=== PATIENT | male | born 1940 | race Caucasian/White ===

== ENCOUNTER 2017-12-12 11:54 | Day surgery (SDC) | payer MEDICARE, SELFPAY ==
[~2017-12-12 11:54] MED LIST: ASPI81CH PO; CLON.2 PO; ENOX40I SC; FISH1000 PO; Garlic Oil1000 MG PO; HYDCHL25 PO; MULVITMIND PO; OMEP20ER PO; OXYACE5T PO; SIMV40 PO; VERA240ER PO; ZESTRIL40 MG PO
== END 2017-12-13 00:07 | disposition home or self-care (01) ==
LOC: RAD 11:54
PROC: B54BZZZ Ultrasonography of Right Lower Extremity Veins (ICD-10-PCS; principal; 2017-12-12)
DX: L03.115 Cellulitis of right lower limb (principal)
CPT/HCPCS: 85025; 93971

== ENCOUNTER 2018-04-26 16:38 | Emergency (ER) | payer MEDICARE ==
[~2018-04-26] VITALS: Ht 175.3 cm; Wt 104.3 kg
[2018-04-26] MEDS ORDERED: Kristalose20 GM PO (17:06)
[2018-04-26] MEDS ORDERED: Golytely Solu4000 ML PO (17:06)
== END 2018-04-26 17:10 | disposition home or self-care (01) ==
LOC: ER 16:38
DX: K59.00 Constipation, unspecified (principal); I10 Essential (primary) hypertension; E78.5 Hyperlipidemia, unspecified; K21.9 Gastro-esophageal reflux disease without esophagitis; J44.9 Chronic obstructive pulmonary disease, unspecified; Z87.891 Personal history of nicotine dependence; Z79.899 Other long term (current) drug therapy; Z79.82 Long term (current) use of aspirin
CPT/HCPCS: 99282

== ENCOUNTER → 2019-03-03 | Outpatient (CLI) | payer MEDICARE, OTHER ==
[~2019-03-03] MED LIST changes: +Golytely Solu4000 ML PO; +Kristalose20 GM PO
[2019-03-03 14:59] LABS: BASOPHILS ABSOLUTE AUTO 0.02 K/mm3 (0.00-0.23); BASOPHILS PERCENT AUTO 0 % (0-2); EOSINOPHILS ABSOLUTE AUTO 0.34 K/mm3 (0.00-0.68); EOSINOPHILS PERCENT AUTO 5 % (0-6); Hematocrit 38.9 % (37.0-53.0); Hemoglobin 12.5 g/dL (13.5-17.5); IMMATURE GRAN ABSOLUTE AUTO 0.02 K/mm3 (0.00-0.10); IMMATURE GRAN PERCENT AUTO 0 % (0-1); LYMPHOCYTES ABSOLUTE AUTO 1.01 K/mm3 (0.84-5.20); LYMPHOCYTES PERCENT AUTO 14 % (21-46); MONOCYTES ABSOLUTE AUTO 0.73 K/mm3 (0.16-1.47); MONOCYTES PERCENT AUTO 10 % (4-13); Mean Corpuscular HGB Conc 32.1 g/dL (31.5-36.5); Mean Corpuscular Volume 93 fL (80-100); Mean Platelet Volume 9.1 fL (9.1-12.4); NEUTROPHILS ABSOLUTE AUTO 5.09 K/mm3 (1.96-9.15); NEUTROPHILS PERCENT AUTO 71 % (41-73); Platelet Count 256 K/mm3 (150-400); RDW Coefficient Variation 14.9 % (11.7-14.2); RDW Standard Deviation 50.9 fL (35.1-46.3); Red Blood Cell Count 4.17 M/mm3 (4.30-5.90); White Blood Cell Count 7.21 K/mm3 (4.00-11.30)
[2019-03-03 15:07] LABS: Anion Gap 4 mmol/L (6-16); Blood Urea Nitrogen 19 mg/dL (8-24); Bun/Creatinine Ratio 17.6 (12.0-20.0); CO2, Blood 34 mmol/L (21-32); Calcium, Blood 8.5 mg/dL (8.5-10.1); Chloride, Blood 100 mmol/L (98-108); Creatinine, Blood 1.08 mg/dL (0.60-1.20); Glomerular Filtration Rate >60 (60-); Glucose, Blood 122 mg/dL (70-99); Potassium, Blood 4.1 mmol/L (3.5-5.5); Sodium, Blood 138 mmol/L (136-145)
== END | disposition home or self-care (01) ==
LOC: LAB EV 14:51 → LAB SHORT 14:51
PROVIDERS: Physician Assistant Surgical
DX: M79.89 Other specified soft tissue disorders (principal); R06.02 Shortness of breath; L03.115 Cellulitis of right lower limb
CPT/HCPCS: 80048; 83880; 85025; 87070; 87205

== ENCOUNTER 2019-07-04 07:30 | Day surgery (SDC) | payer MEDICARE, OTHER | END 2019-07-04 22:45 | disposition home or self-care (01) | LOC: WOUND 07:30 | DX: L97.821 Non-pressure chronic ulcer of other part of left lower leg limited to breakdown of skin (principal); L97.811 Non-pressure chronic ulcer of other part of right lower leg limited to breakdown of skin; S91.302D Unspecified open wound, left foot, subsequent encounter; I87.2 Venous insufficiency (chronic) (peripheral); I89.0 Lymphedema, not elsewhere classified; I10 Essential (primary) hypertension; J44.9 Chronic obstructive pulmonary disease, unspecified; E78.5 Hyperlipidemia, unspecified; I25.2 Old myocardial infarction | CPT/HCPCS: G0463 ==

== ENCOUNTER 2019-07-11 00:29 | Day surgery (SDC) | payer MEDICARE, OTHER | END 2019-07-11 22:43 | disposition home or self-care (01) | LOC: WOUND 00:29 | DX: L97.821 Non-pressure chronic ulcer of other part of left lower leg limited to breakdown of skin (principal); L97.811 Non-pressure chronic ulcer of other part of right lower leg limited to breakdown of skin; S91.302D Unspecified open wound, left foot, subsequent encounter; I89.0 Lymphedema, not elsewhere classified; I10 Essential (primary) hypertension; E78.5 Hyperlipidemia, unspecified; J44.9 Chronic obstructive pulmonary disease, unspecified; M19.90 Unspecified osteoarthritis, unspecified site | CPT/HCPCS: 87070; 87075; 87205; G0463 ==

== ENCOUNTER 2019-07-18 00:33 | Day surgery (SDC) | payer MEDICARE, OTHER | END 2019-07-18 22:41 | disposition home or self-care (01) | LOC: WOUND 00:33 | DX: L97.811 Non-pressure chronic ulcer of other part of right lower leg limited to breakdown of skin (principal); L97.821 Non-pressure chronic ulcer of other part of left lower leg limited to breakdown of skin; S91.302D Unspecified open wound, left foot, subsequent encounter; I89.0 Lymphedema, not elsewhere classified; I10 Essential (primary) hypertension; I73.9 Peripheral vascular disease, unspecified | CPT/HCPCS: G0463 ==

== ENCOUNTER 2019-08-02 15:13 | Day surgery (SDC) | payer MEDICARE, OTHER | END 2019-08-02 22:35 | disposition home or self-care (01) | LOC: WOUND 15:13 | DX: L89.892 Pressure ulcer of other site, stage 2 (principal); L97.811 Non-pressure chronic ulcer of other part of right lower leg limited to breakdown of skin; L97.529 Non-pressure chronic ulcer of other part of left foot with unspecified severity; L97.519 Non-pressure chronic ulcer of other part of right foot with unspecified severity; S91.302D Unspecified open wound, left foot, subsequent encounter; I73.9 Peripheral vascular disease, unspecified; I89.0 Lymphedema, not elsewhere classified; I10 Essential (primary) hypertension | CPT/HCPCS: 87070; 87077; 87147; 87186; 87205 ==

== ENCOUNTER 2019-08-09 00:44 | Day surgery (SDC) | payer MEDICARE, OTHER | END 2019-08-09 22:41 | disposition home or self-care (01) | LOC: WOUND 00:44 | DX: L97.811 Non-pressure chronic ulcer of other part of right lower leg limited to breakdown of skin (principal); L89.892 Pressure ulcer of other site, stage 2; S91.302A Unspecified open wound, left foot, initial encounter; I89.0 Lymphedema, not elsewhere classified; I10 Essential (primary) hypertension ==

== ENCOUNTER 2019-08-16 00:23 | Day surgery (SDC) | payer MEDICARE, OTHER | END 2019-08-16 22:45 | disposition home or self-care (01) | LOC: WOUND 00:23 | DX: L97.811 Non-pressure chronic ulcer of other part of right lower leg limited to breakdown of skin (principal); L89.892 Pressure ulcer of other site, stage 2; S91.302D Unspecified open wound, left foot, subsequent encounter; I10 Essential (primary) hypertension; I89.0 Lymphedema, not elsewhere classified ==

== ENCOUNTER 2019-08-23 00:30 | Day surgery (SDC) | payer MEDICARE, OTHER | END 2019-08-23 22:48 | disposition home or self-care (01) | LOC: WOUND 00:30 | DX: L97.811 Non-pressure chronic ulcer of other part of right lower leg limited to breakdown of skin (principal); L97.529 Non-pressure chronic ulcer of other part of left foot with unspecified severity; L89.892 Pressure ulcer of other site, stage 2; S91.302D Unspecified open wound, left foot, subsequent encounter; I89.0 Lymphedema, not elsewhere classified ==

== ENCOUNTER 2019-08-30 00:25 | Day surgery (SDC) | payer MEDICARE, OTHER | END 2019-08-30 22:35 | disposition home or self-care (01) | LOC: WOUND 00:25 | DX: L97.811 Non-pressure chronic ulcer of other part of right lower leg limited to breakdown of skin (principal); L89.892 Pressure ulcer of other site, stage 2; S91.302D Unspecified open wound, left foot, subsequent encounter; I10 Essential (primary) hypertension; J44.9 Chronic obstructive pulmonary disease, unspecified; I89.0 Lymphedema, not elsewhere classified ==

== ENCOUNTER 2019-09-06 14:46 | Day surgery (SDC) | payer MEDICARE, OTHER | END 2019-09-06 22:38 | disposition home or self-care (01) | LOC: WOUND 14:46 | DX: L89.892 Pressure ulcer of other site, stage 2 (principal); L97.811 Non-pressure chronic ulcer of other part of right lower leg limited to breakdown of skin; S91.302D Unspecified open wound, left foot, subsequent encounter; I89.0 Lymphedema, not elsewhere classified; I10 Essential (primary) hypertension ==

== ENCOUNTER 2019-09-13 00:22 | Day surgery (SDC) | payer MEDICARE, OTHER | END 2019-09-13 22:40 | disposition home or self-care (01) | LOC: WOUND 00:22 | DX: S91.302D Unspecified open wound, left foot, subsequent encounter (principal); I89.0 Lymphedema, not elsewhere classified; I10 Essential (primary) hypertension | CPT/HCPCS: G0463 ==

== ENCOUNTER 2019-11-14 17:23 | Emergency (ER) | payer MEDICARE, OTHER ==
[~2019-11-14] VITALS: Ht 175.3 cm; Wt 117.9 kg
[~2019-11-14 17:23] MED LIST changes: -ASPI81CH PO; +Aspir 8181 MG PO; -Garlic Oil1000 MG PO; +Garlic1 EAC1 PO; +LISI20 PO; -MULVITMIND PO; -SIMV40 PO; +Simvastatin40 MG PO; +THERA1 EACH PO; -ZESTRIL40 MG PO
[2019-11-14 18:56] LABS: BASOPHILS ABSOLUTE AUTO 0.01 K/mm3 (0.00-0.23); BASOPHILS PERCENT AUTO 0 % (0-2); EOSINOPHILS ABSOLUTE AUTO 0.12 K/mm3 (0.00-0.68); EOSINOPHILS PERCENT AUTO 1 % (0-6); Hematocrit 36.6 % (37.0-53.0); Hemoglobin 11.8 g/dL (13.5-17.5); IMMATURE GRAN ABSOLUTE AUTO 0.04 K/mm3 (0.00-0.10); IMMATURE GRAN PERCENT AUTO 0 % (0-1); LYMPHOCYTES ABSOLUTE AUTO 1.08 K/mm3 (0.84-5.20); LYMPHOCYTES PERCENT AUTO 10 % (21-46); MONOCYTES ABSOLUTE AUTO 1.03 K/mm3 (0.16-1.47); MONOCYTES PERCENT AUTO 10 % (4-13); Mean Corpuscular HGB 29.4 pg (26.0-34.0); Mean Corpuscular HGB Conc 32.2 g/dL (31.5-36.5); Mean Corpuscular Volume 91 fL (80-100); Mean Platelet Volume 9.6 fL (9.1-12.4); NEUTROPHILS PERCENT AUTO 79 % (41-73); Platelet Count 234 K/mm3 (150-400); RDW Coefficient Variation 14.9 % (11.7-14.2); RDW Standard Deviation 50.6 fL (35.1-46.3); Red Blood Cell Count 4.02 M/mm3 (4.30-5.90); White Blood Cell Count 10.68 K/mm3 (4.00-11.30)
[2019-11-14 19:14] LABS: Alanine Aminotransfer (ALT/SGP 31 U/L (12-78); Albumin/Globulin Ratio 0.6 (0.8-1.8); Alk Phos 95 U/L (50-136); Anion Gap 5 mmol/L (6-16); Aspartate Aminotrans (AST/SGOT 43 U/L (12-37); Bilirubin, Total 0.6 mg/dL (0.1-1.0); Blood Urea Nitrogen 14 mg/dL (8-24); Bun/Creatinine Ratio 17.2 (12.0-20.0); CO2, Blood 28 mmol/L (21-32); Calcium, Blood 8.4 mg/dL (8.5-10.1); Chloride, Blood 99 mmol/L (98-108); Creatinine, Blood 0.82 mg/dL (0.60-1.20); Globulin, Blood 5.2 g/dL (2.2-4.0); Glomerular Filtration Rate >60 (60-); Glucose, Blood 136 mg/dL (70-99); Sodium, Blood 132 mmol/L (136-145); Total Protein, Blood 8.2 g/dL (6.4-8.2)
[2019-11-14 20:39] LABS: Source, Urine Clean Catch
[2019-11-14 20:42] LABS: Bilirubin, Urine Neg (Neg); Blood, Urine Neg (Neg); Glucose Qualitative, Urine Neg (Neg); Ketones, Urine 2+ (Neg); Leukocyte Esterase, Urine Neg (Neg); Nitrite, Urine Neg (Neg); Protein, Urine Neg (Neg); Specific Gravity, Urine 1.005 (1.003-1.022); Urobilinogen, Urine NORM (Normal)
[2019-11-14 20:49] LABS: Appearance, Urine Clear (Clear); Color, Urine Yellow (P-Yellow)
[2019-11-14] MEDS ORDERED: Alprazolam1 MG PO (22:47)
[2019-11-14] MEDS ORDERED: FUROSEMIDE40 MG PO (22:48)
[2019-11-14] MEDS ORDERED: K-Dur10 MEQ PO (22:48)
[2019-11-15] MEDS ORDERED: AZIT250 PO (00:02)
== END 2019-11-15 01:07 | disposition home or self-care (01) ==
LOC: ER 17:23
PROVIDERS: Physician Assistant
DX: I89.0 Lymphedema, not elsewhere classified (principal); R53.1 Weakness; I10 Essential (primary) hypertension; E78.5 Hyperlipidemia, unspecified; K21.9 Gastro-esophageal reflux disease without esophagitis; J44.9 Chronic obstructive pulmonary disease, unspecified; F17.200 Nicotine dependence, unspecified, uncomplicated; Z79.899 Other long term (current) drug therapy; Z79.82 Long term (current) use of aspirin
CPT/HCPCS: 36415; 71045; 80053; 81003; 83880; 84484; 85025; 93971; 99284-25

== ENCOUNTER 2019-11-17 14:43 | Observation (INO) | payer MEDICARE, OTHER ==
[~2019-11-17] VITALS: Ht 177.8 cm; Wt 116.0 kg
[~2019-11-17 14:43] MED LIST changes: +AZIT250 PO; +Alprazolam1 MG PO; +FUROSEMIDE40 MG PO; +K-Dur10 MEQ PO
[2019-11-17 17:45] LABS: BASOPHILS ABSOLUTE AUTO 0.03 K/mm3 (0.00-0.23); BASOPHILS PERCENT AUTO 0 % (0-2); EOSINOPHILS ABSOLUTE AUTO 0.25 K/mm3 (0.00-0.68); EOSINOPHILS PERCENT AUTO 3 % (0-6); Hematocrit 42.3 % (37.0-53.0); Hemoglobin 13.2 g/dL (13.5-17.5); IMMATURE GRAN ABSOLUTE AUTO 0.05 K/mm3 (0.00-0.10); IMMATURE GRAN PERCENT AUTO 1 % (0-1); LYMPHOCYTES PERCENT AUTO 10 % (21-46); MONOCYTES PERCENT AUTO 10 % (4-13); Mean Corpuscular HGB 28.5 pg (26.0-34.0); Mean Corpuscular HGB Conc 31.2 g/dL (31.5-36.5); Mean Corpuscular Volume 91 fL (80-100); NEUTROPHILS ABSOLUTE AUTO 6.54 K/mm3 (1.96-9.15); NEUTROPHILS PERCENT AUTO 75 % (41-73); Platelet Count 347 K/mm3 (150-400); RDW Coefficient Variation 15.1 % (11.7-14.2); RDW Standard Deviation 50.4 fL (35.1-46.3); Red Blood Cell Count 4.63 M/mm3 (4.30-5.90); White Blood Cell Count 8.67 K/mm3 (4.00-11.30)
[2019-11-17 18:14] LABS: Troponin I <0.015 ng/mL (0.000-0.040)
[2019-11-17 18:17] LABS: Alanine Aminotransfer (ALT/SGP 31 U/L (12-78); Albumin/Globulin Ratio 0.5 (0.8-1.8); Alk Phos 95 U/L (50-136); Anion Gap 7 mmol/L (6-16); Aspartate Aminotrans (AST/SGOT 41 U/L (12-37); Bilirubin, Total 0.5 mg/dL (0.1-1.0); Blood Urea Nitrogen 16 mg/dL (8-24); CO2, Blood 27 mmol/L (21-32); Calcium, Blood 8.9 mg/dL (8.5-10.1); Chloride, Blood 101 mmol/L (98-108); Creatinine, Blood 0.84 mg/dL (0.60-1.20); Globulin, Blood 5.7 g/dL (2.2-4.0); Glomerular Filtration Rate >60 (60-); Glucose, Blood 96 mg/dL (70-99); Potassium, Blood 4.3 mmol/L (3.5-5.5); Sodium, Blood 135 mmol/L (136-145); Total Protein, Blood 8.7 g/dL (6.4-8.2)
[2019-11-17 19:17] LABS: Source, Urine Voided
[2019-11-17 19:22] LABS: Bilirubin, Urine Neg (Neg); Blood, Urine Neg (Neg); Glucose Qualitative, Urine Neg (Neg); Ketones, Urine Neg (Neg); Leukocyte Esterase, Urine 2+ (Neg); Nitrite, Urine Neg (Neg); Protein, Urine 1+ (Neg); Urobilinogen, Urine 2+ (Normal)
[2019-11-17 19:27] LABS: Appearance, Urine Clear (Clear); Color, Urine Yellow (P-Yellow)
[2019-11-17 19:28] LABS: Bacteria Few /hpf; Red Blood Cells, Urine 0-2 /hpf (0-2); Squamous Epithelial Cells Rare /hpf (Few)
[2019-11-17] MEDS ORDERED: AMIT25 PO (20:25)
--- NOTE | 2019-11-17 22:52 | NUR ---
79 YR OLD MALE ADMITTED TO FLOOR FROM THE ED WITH DX IMPAIRED MOBILITY AND ADL'S. ALERT AND ORIENTED. VOICED INABILITY TO EVEN USE BEDSIDE COMMODE AT HOME DUE TO DECONDITIONING OF LOWER EXTREMITIES. VOICED HE "BROKE" RLE AND IS "UNABLE TO STRAIGHTEN IT OUT". ALSO NOTED DECUBITUS OF RIGHT GLUTEAL, WITH HARDNESS AND DISCOLORATION OF LEFT GLUTEAL. LLE IS SWOLLEN AND RED. NOTE SOME CONGESTION - HOB ELEVATED TO 45 DEGREES. ASSISTED WITH BEDPAN - MED SIZED BM. CALL LIGHT IN REACH.
--- NOTE | 2019-11-17 23:51 | NUR ---
BEAVER TRAPPER AGRICULTURAL ECONOMIST NOTIFIED OF PT WOUNDS OF GLUTES AND LLE.
--- NOTE | 2019-11-18 01:56 | NUR ---
PT HAS BEEN RESTING WITHOUT NOTED ACUTE DISTRESS, BREATHING BETTER SINCE RESP TREATMENT PER RT EARLIER. HOB ELEVATED. CALL LIGHT IN REACH.
--- NOTE | 2019-11-18 17:22 | NUR ---
SHIFT SUMMARY PT AXO, PLEASANT AND COOPERATIVE WITH CARE. PT UP TO CHAIR WITH PHYSICAL THERAPY, SEE NOTE. PATIENT ALSO WORKED WITH OCCUPATIONAL THERAPY, SEE NOTE. VSS. PT DENIES PAIN, SOB AND NV. NURSE AND SCABBLER GOT PT UP TO SHOWER CHAIR VIA JOEY LIFT AND INTO SHOWER. SACRAL WOUNDS DRESSED WITH MEPILEX. PT UP IN RECLINER AT THIS TIME. CALL LIGHT WITHIN REACH. VOIDS IN URINAL WITH ASSISTANCE.
--- NOTE | 2019-11-19 07:16 | NUR ---
SHIFT SUMMARY PT LS CLEAR AND DIMINISHED, BT + X4. PT C/O PAIN IN HIS LE'S AND HE RECEIVED TYLENOL FOR PAIN WHICH WAS EFFECTIVE. NO OTHER COMPLAINTS T/O THE NIGHT. APPEARED TO BE SLEEPING AFTER APPROX 0500. HE WATCHED TV WHENEVER HE WASN'T ABLE TO SLEEP. HE APPEARS TO BE SLEEPING THIS MORNING.
--- NOTE | 2019-11-19 13:07 | NUR ---
D/C PLANNING: CONFIRMED BED AVAILABLE WITH [facility]. PT TO D/C TO [facility] TODAY. ORDERS FAXED TO [facility] AND [facility]. TRANSPORTATION ARRANGED WITH [facility] [employer] WHEELCHA[facility] FOR 1500. NOTIFIED PT'S EX- VANESSA PER PT REQUEST.
--- NOTE | 2019-11-19 15:20 | NUR ---
PT TRANSFERED VIA WHEELCHAIR WITH [facility] TO [facility]. PT AOX3 AND COOPERATIVE OF CARE. PT HAD PACKET SENT WITH HIM. PT WAS LOADED IN WHEELCHAIR WITH THE SIT TO STAND. BELONGINGS SENT WITH PT AND REPORT CALLED PRIOR TO DISCHARE TO [facility]. DENIED ANY PAIN TODAY.LLE CELLULITIS NO CHANGES AND MEPAPLEX TO R GLUTEAL IN PLACE. PT DID NOT WANT TO GET DRESSED AND REQUESTED TO GO IN HOSPITAL GOWN.
== END 2019-11-19 15:08 ==
LOC: ER 14:43 → MEDS 14:44
PROVIDERS: Emergency Medicine; ADMIT Hospitalist
DX: Z74.09 Other reduced mobility (principal); J44.9 Chronic obstructive pulmonary disease, unspecified; I10 Essential (primary) hypertension; E78.5 Hyperlipidemia, unspecified; D64.9 Anemia, unspecified; E87.1 Hypo-osmolality and hyponatremia; I73.9 Peripheral vascular disease, unspecified; F17.210 Nicotine dependence, cigarettes, uncomplicated; J98.11 Atelectasis; E66.9 Obesity, unspecified; M19.90 Unspecified osteoarthritis, unspecified site; Z79.82 Long term (current) use of aspirin; Z79.899 Other long term (current) drug therapy; Z68.43 Body mass index [BMI] 50.0-59.9, adult
CPT/HCPCS: 36415; 71045; 80053; 81001; 83880; 84443; 84484; 85025; 93005; 93010; 96372; 97110; 97163; 97167; 97530; 97535; 99285-25; A9270; G0378; J1650

== ENCOUNTER 2020-02-29 11:27 | Inpatient (IN) | payer MEDICARE, OTHER ==
[~2020-02-29] VITALS: Ht 180.3 cm; Wt 135.2 kg
[~2020-02-29 11:27] MED LIST changes: -ACET325 PO; -AMIT10 PO; -Aspir 8181 MG PO; -BENEFIBER236 GM PO; -BISA10S PR; -CYCL10 PO; -FUROSEMIDE40 MG PO; -Hair, Skin & N1 EACH PO; -K-Dur10 MEQ PO; -LISI20 PO; -MILK OF MA400 MG/5 M PO; -ONDA4 PO; -Simvastatin40 MG PO; -Verapamil ER200 MG PO
[2020-02-29 12:18] LABS: BASOPHILS ABSOLUTE AUTO 0.06 K/mm3 (0.00-0.23); BASOPHILS PERCENT AUTO 0 % (0-2); EOSINOPHILS ABSOLUTE AUTO 0.01 K/mm3 (0.00-0.68); EOSINOPHILS PERCENT AUTO 0 % (0-6); Hematocrit 41.9 % (37.0-53.0); Hemoglobin 13.1 g/dL (13.5-17.5); IMMATURE GRAN ABSOLUTE AUTO 0.11 K/mm3 (0.00-0.10); IMMATURE GRAN PERCENT AUTO 1 % (0-1); LYMPHOCYTES ABSOLUTE AUTO 0.47 K/mm3 (0.84-5.20); LYMPHOCYTES PERCENT AUTO 2 % (21-46); MONOCYTES ABSOLUTE AUTO 1.92 K/mm3 (0.16-1.47); MONOCYTES PERCENT AUTO 9 % (4-13); Mean Corpuscular HGB 29.5 pg (26.0-34.0); Mean Corpuscular HGB Conc 31.3 g/dL (31.5-36.5); Mean Corpuscular Volume 94 fL (80-100); Mean Platelet Volume 8.8 fL (9.1-12.4); NEUTROPHILS ABSOLUTE AUTO 19.94 K/mm3 (1.96-9.15); NEUTROPHILS PERCENT AUTO 89 % (41-73); Platelet Count 425 K/mm3 (150-400); RDW Coefficient Variation 15.5 % (11.7-14.2); Red Blood Cell Count 4.44 M/mm3 (4.30-5.90); White Blood Cell Count 22.51 K/mm3 (4.00-11.30)
[2020-02-29 12:43] LABS: Alanine Aminotransfer (ALT/SGP 29 U/L (12-78); Albumin, Blood 4.2 g/dL (3.4-5.0); Albumin/Globulin Ratio 0.7 (0.8-1.8); Alk Phos 100 U/L (50-136); Anion Gap 13 mmol/L (6-16); Aspartate Aminotrans (AST/SGOT 23 U/L (12-37); Bilirubin, Total 0.7 mg/dL (0.1-1.0); Blood Urea Nitrogen 68 mg/dL (8-24); Bun/Creatinine Ratio 21.5 (12.0-20.0); CO2, Blood 24 mmol/L (21-32); Calcium, Blood 9.4 mg/dL (8.5-10.1); Chloride, Blood 93 mmol/L (98-108); Creatinine, Blood 3.17 mg/dL (0.60-1.20); Globulin, Blood 5.9 g/dL (2.2-4.0); Glomerular Filtration Rate 20 (60-); Glucose, Blood 190 mg/dL (70-99); Potassium, Blood 5.5 mmol/L (3.5-5.5); Sodium, Blood 130 mmol/L (136-145); Total Protein, Blood 10.1 g/dL (6.4-8.2); Troponin I <0.015 ng/mL (0.000-0.040)
[2020-02-29] MEDS ORDERED: Verapamil ER200 MG PO (14:55)
[2020-02-29] MEDS ORDERED: LISI20 PO (14:56)
[2020-02-29] MEDS ORDERED: Simvastatin40 MG PO (14:56)
[2020-02-29] MEDS ORDERED: FUROSEMIDE40 MG PO (14:57)
[2020-02-29] MEDS ORDERED: Hair, Skin & N1 EACH PO (14:57)
[2020-02-29] MEDS ORDERED: Aspir 8181 MG PO (14:57)
[2020-02-29] MEDS ORDERED: K-Dur10 MEQ PO (14:58)
[2020-02-29] MEDS ORDERED: AMIT10 PO (14:59)
[2020-02-29] MEDS ORDERED: CYCL10 PO (14:59)
[2020-02-29] MEDS ORDERED: ACET325 PO ×2 (15:00→15:01)
[2020-02-29] MEDS ORDERED: BISA10S PR (15:01)
[2020-02-29] MEDS ORDERED: MILK OF MA400 MG/5 M PO (15:02)
[2020-02-29] MEDS ORDERED: BENEFIBER236 GM PO (15:03)
[2020-02-29 15:17] LABS: PCO2 Arterial 45 mmHg (35-45); PO2 Arterial 67 mmHg (80-100)
[2020-02-29 15:52] LABS: Adenovirus F 40/41 Not Detected (NOT DETECT); Astrovirus Not Detected (NOT DETECT); Campylobacter Sp Not Detected (NOT DETECT); Cryptosporidium Not Detected (NOT DETECT); Cyclospora Cayetanensis Not Detected (NOT DETECT); E. Coli O157 Not Detected (NOT DETECT); Entamoeba Histolytica Not Detected (NOT DETECT); Enteroaggregative E. coli-EAEC Not Detected (NOT DETECT); Enteropathogenic E. coli-EPEC Not Detected (NOT DETECT); Enterotoxigenic E. coli-ETEC Not Detected (NOT DETECT); Giardia Lamblia Not Detected (NOT DETECT); Norovirus GI/GII Not Detected (NOT DETECT); Plesiomonas Shigelloides Not Detected (NOT DETECT); Rotavirus A Not Detected (NOT DETECT); Salmonella Sp Not Detected (NOT DETECT); Sapovirus Not Detected (NOT DETECT); Shiga Toxin-prod E. coli-STEC Not Detected (NOT DETECT); Shigella/Enteroin E. coli-EIEC Not Detected (NOT DETECT); Vibrio Cholerae Not Detected (NOT DETECT); Vibrio Sp Not Detected (NOT DETECT); Yersinia Enterocolitica Not Detected (NOT DETECT)
--- NOTE | 2020-02-29 18:37 | NUR ---
Patient arrive via gurney from ER at 1617. He was alert and able to communicate his needs. He had attends in place and was soiuled with light hi liquids stool. I placed him on 3L O2 via NC and increased to 5L and sats mid 90%'s. We placed rectal tube and continued to have watery hi stool out rectal tube. NG placed in left nares and got dark brown output, he coughed andf spayed on ppatient and staff and cleaned him up, less than 50ml/out. Dr bermeo in room and had RT give breathing treatment and wheezy, doing better after treatment. PICC line place for MAPs <65. Bolus LR and systolic came up to 94 but MAP <65. Started low dose Levophed at 5 mcg/min. Patient resting quietly. Called son and gave update ( Osbaldo Johnson)
--- NOTE | 2020-02-29 19:00 | NUR ---
ASSUMED CARE NOTE: ASSUMED CARE OF PT AT 1900, RECEVIED REPORT FROM RACHEL SALAZAR. PT IS ALERT AND ORIENTEDX3. PT IS ON 4L OF O2 VIA NC, WITH SPO2 ABOVE 90%, PT PRODUCING WHITE/CLEAR SPUTUM. PT IS WHEEZY IN THE UPPER LOBES BILATERALLY. PT IS IN NSR WITH HR IN THE 90'S. BP STABLE, LEVOPHED RUNNING @ 5MCG/MIN. PT DENIES PAIN, HOWEVER, HE STATES HE IS NAUSEATED, PT ALSO STATES THAT HE HAS ABDOMINAL TENDERNESS IN ALL QUADRANTS. OG TUBE IN PLACE CONNECTED TO LOW INTERMIT SUCTION. RECTAL TUBE TO GRAVITY DRAINING BROWN, YELLOW LIQUID STOOL. BED AT LOWEST LEVEL, WILL CONTINUE TO MONITOR PT T/O SHIFT.
--- NOTE | 2020-02-29 20:45 | NUR ---
CALLED [facility], TO OBTAIN MEDICATION LIST AND MEDICAL HISTORY. LEFT NAME AND NUMBER WITH PRIMARY NURSE. WILL WAIT ON RESPONSE TO COMPLETE MED REC.
--- NOTE | 2020-02-29 22:02 | NUR ---
UPDATE: DANI WHITMORE AT BEDSIDE, FOR PT TO SELF USE. CONDOM CATH IN PLACE, TO OBTAIN URINE SAMPLE AND PREVENT FURTHER SKIN BREAKDOWN. SPOKE TO YOEL SALAZAR, AT [facility], AWAITING FAX.
[2020-03-01] MEDS ORDERED: ONDA4 PO (02:33)
[2020-03-01 03:20] LABS: Source, Urine Catheter
[2020-03-01 03:23] LABS: Bilirubin, Urine Neg (Neg); Blood, Urine 2+ (Neg); Glucose Qualitative, Urine Neg (Neg); Ketones, Urine Neg (Neg); Leukocyte Esterase, Urine 1+ (Neg); Nitrite, Urine Neg (Neg); Protein, Urine 2+ (Neg); Urobilinogen, Urine NORM (Normal)
[2020-03-01 03:28] LABS: Appearance, Urine Hazy (Clear); Color, Urine Yellow (P-Yellow)
[2020-03-01 03:29] LABS: Amorphous Heavy (0-Heavy); Bacteria Few /hpf; Red Blood Cells, Urine Rare /hpf (0-2); Squamous Epithelial Cells Rare /hpf (Few); White Blood Cells, Urine 0-2 /hpf (0-5)
[2020-03-01 04:00] LABS: Hematocrit 32.2 % (37.0-53.0); Mean Corpuscular HGB 29.4 pg (26.0-34.0); Mean Corpuscular HGB Conc 31.1 g/dL (31.5-36.5); Mean Corpuscular Volume 95 fL (80-100); Mean Platelet Volume 8.7 fL (9.1-12.4); Platelet Count 318 K/mm3 (150-400); RDW Coefficient Variation 15.6 % (11.7-14.2); RDW Standard Deviation 54.3 fL (35.1-46.3); White Blood Cell Count 15.05 K/mm3 (4.00-11.30)
--- NOTE | 2020-03-01 04:14 | NUR ---
UPDATE: BLADDER SCAN PERFORMED, RESULT 572ML. CALLED , ORDERS GIVEN TO PLACE ELIZONDO CATH. PT TOLERATED PRODECURE WILL. ELIZONDO DRAINING HEYDI COLORED URINE. PT BLOOD PRESSURE CONTINUES TO DECREASE, LEVOPHED UP TO 14MCG/MIN. PT IS STILL ALERT AND ORIENTED. PT DENIES FEELING WEAK/DIZZY. WILL CONTINUE TO MONITOR PT.
[2020-03-01 04:17] LABS: BAND PERCENT MAN 22 % (0-8); BASOPHILS PERCENT MAN 0 % (0-2); EOSINOPHILS PERCENT MAN 0 % (0-6); LYMPHOCYTES PERCENT MAN 6 % (21-46); MONOCYTES ABSOLUTE MAN 1.95 K/mm3 (0.16-1.47); MONOCYTES PERCENT MAN 13 % (4-13); NEUTROPHILS ABSOLUTE MAN 12.19 K/mm3 (1.96-9.15); SEG NEUTROPHILS PERCENT MAN 59 % (41-73); TOTAL CELLS COUNTED 100
[2020-03-01 04:22] LABS: Albumin, Blood 2.7 g/dL (3.4-5.0); Albumin/Globulin Ratio 0.6 (0.8-1.8); Bilirubin, Total 0.4 mg/dL (0.1-1.0); Bun/Creatinine Ratio 23.2 (12.0-20.0); Calcium, Blood 7.6 mg/dL (8.5-10.1); Creatinine, Blood 3.19 mg/dL (0.60-1.20); Globulin, Blood 4.3 g/dL (2.2-4.0); Potassium, Blood 4.6 mmol/L (3.5-5.5)
--- NOTE | 2020-03-01 06:15 | NUR ---
SHIFT SUMMARY: SEE PREVIOUS NOTES. LEVOPHED HAS BEEN INCREASED DUE TO LOW MAP. LEVOPHED IS NOW RUNNING @ 12MCG/MIN. PT DENIES FEELING LIGHTHEADED, DIZZY, OR NAUSEATED. PT HAS BEEN IN SINUS TACH WITH HR BETWEEN 90-105. PT'S IS NOW ON 2L OF O2 VIA NC, WITH SPO2 ABOVE 90% PT DENIES BEING SOB. ELIZONDO WAS PLACED THIS SHIFT DUE TO RETENTION. ELIZONDO IS PATENT AND DRAINGING HEYDI COLORED URINE. RECTAL TUBE IS LIQUID AND LIGHT BROWN 500ML OUTPUT. OG TUBE TO LOW INTERMIT SUCTION, LITTLE TO NO OUTPUT. WILL CONTINUE TO MONITOR PT UNTIL REPORT IS GIVEN TO ONCOMING SHIFT
--- NOTE | 2020-03-01 08:00 | NUR ---
PT A&OX3. [place], BUT COMMUNICATING NEEDS WELL. PT BED BOUND WITH CONTRACTURES TO RIGHT UPPER AND LOWER EXTREMITY AT BASELINE. ECG SHOWS SR TO ST 90-100'S. MAP 60-65 WITH LEVOPHED DRIP @ 12 MCG/MIN. LUNGS DIMINISHED IN THE BASES, NUT MAINTAINS SATS>90% ON 2 LITERS NASANL CANULA. NPO. NGT TO RIGHT NARES TO LIS-SMALL AMOUNT OF GREEN LIQUID DRAINAGE. ABDOMEN REMAINS DISTENDED WITH HYPERACTIVE BT'S. RECTAL TUBE DRAINING LARGE AMOUNT OF BROWN, LIQUID STOOL. PT DENIES PAIN OR NAUSEA AT THIS TIME. AM CARE DONE AND PT POSITIONED TO COMFORT ON RIGHT SIDE.
--- NOTE | 2020-03-01 11:27 | NUR ---
PT/OT HERE TO WORK WITH PT. SUNSHINE 233- GIVEN INSULIN PER SLIDING SCALE-SEE EMAR.
--- NOTE | 2020-03-01 12:00 | NUR ---
PT GIVEN BED BATH AND LINEN CHANGE COMPLETED BY LEATHER TOGGLER X2. PT ASSISTED UP TO RECLINER CHAIR UTILIZING CEILING LIFT. TOLERATED WELL. PT DID COUGH UP SOME THICK, GREEN SECRETIONS (PER LEATHER TOGGLER). PT PROVIDED WITH SPECIMEN CUP SHOULD HE COUGH UP ANY MORE SPUTUM.
--- NOTE | 2020-03-01 15:58 | NUR ---
met wit patient to review his needs. pt very hard of hearing. Used an anam on my phone that i can talking to and put large print on the screen so he can communicate. Pt states he has been taken off physical therapy. He is svery distraught with his current situation. He states amytrytiline worked for his leg but the [facility] did not have the same dose he had at home so spasms came back. 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 He states his lympadema is orsening and more swelling. He second guesses himself because he progably sould of had the amputation. He is distraught over his qualtiy of life. He also relays that some time other resident wander into his room at night and it is distressing. He is motivated to do more therapy. He is crabby about ocupation therpay states he needs more aggressive weight bearing exercises for his leg. He has an ex who is getting more frail. He has sons one of them is here and helps him and his exwife. But he is feeling sad that he may never live independantly again. Will review his medications with physician for spasms and see if PT can revalute a plan of care for him. review of conversation with nursing.
--- NOTE | 2020-03-01 18:42 | NUR ---
PT RHYTHM CONVERTED TO AF WITH RATE 130-140'S. MAP TRENDING LESS THAN 60-TITRATED LEVOPHED DRIP UP TO 15 MCG TO KEEP MAP>60. DR. MAHAJAN NOTIFIED. AMIODARONE BOLUS GIVEN, THEN DRIP INITIATED @ 1MG/MIN.
--- NOTE | 2020-03-01 19:28 | NUR ---
HR TRENDING 100-110'S WITH AMIODARONE DRIP @ 1 MG/MIN. MAP 60-65 WITH VASOPRESSIN @ 0.04 UNITS/MIN AND LEVOPHED DRIP @ 15 MCG/MIN. REPORT GIVEN TO MARIE MUNGUIA.
--- NOTE | 2020-03-01 19:30 | NUR ---
ASSUMED CARE NOTE: ASSUMED CARE OF PT @ 1900, RECEVIED REPORT FROM AUDRA SALAZAR. PT IS A/OX3, PT IS ON 2L OF O2 VIA NC, SPO2 ABOVE 90% PT IS IN AFIB WITH HR BETWEEN 90- 120. PT IS ON 1MG/HR OF AMIODARONE. PT DENIES ANY PAIN AT THIS TIME. MAP IS AT 60-65 WITH LEVOPHED @ 15MCG/MIN, AND VASOPRESSIN @ 0.04U/MIN. PT'S OG TUBE HAS SCANT AMOUNTS OF GREEN BILE, TUBE CONNECTED TO INTERMIT SUCTION. ABDOMEN DISTENDED, PT STATES HE IS TENDER IN ALL QUADRANTS. PT DENIES NAUSEA/VOMITING. RECTAL TUBE IN PLACE DRAINING BROWN LIQUID STOOL. ELIZONDO PATENT AND DRAINING HEYDI COLORED URINE. WILL CONTINUE TO MONITOR PT T/O SHIFT
[2020-03-01 20:22] LABS: Bun/Creatinine Ratio 32.5 (12.0-20.0); Calcium, Blood 7.1 mg/dL (8.5-10.1); Creatinine, Blood 1.97 mg/dL (0.60-1.20); Magnesium, Blood 2.6 mg/dL (1.6-2.4); Potassium, Blood 4.5 mmol/L (3.5-5.5)
[2020-03-02 03:35] LABS: Hematocrit 30.8 % (37.0-53.0); Hemoglobin 9.5 g/dL (13.5-17.5); Mean Corpuscular HGB 29.5 pg (26.0-34.0); Mean Corpuscular HGB Conc 30.8 g/dL (31.5-36.5); Mean Corpuscular Volume 96 fL (80-100); Mean Platelet Volume 8.6 fL (9.1-12.4); Platelet Count 264 K/mm3 (150-400); RDW Coefficient Variation 15.5 % (11.7-14.2); RDW Standard Deviation 54.2 fL (35.1-46.3); Red Blood Cell Count 3.22 M/mm3 (4.30-5.90); White Blood Cell Count 11.69 K/mm3 (4.00-11.30)
[2020-03-02 03:50] LABS: Albumin, Blood 2.5 g/dL (3.4-5.0); Anion Gap 6 mmol/L (6-16); Blood Urea Nitrogen 54 mg/dL (8-24); Bun/Creatinine Ratio 32.7 (12.0-20.0); CO2, Blood 25 mmol/L (21-32); Calcium, Blood 7.7 mg/dL (8.5-10.1); Chloride, Blood 107 mmol/L (98-108); Creatinine, Blood 1.65 mg/dL (0.60-1.20); Glomerular Filtration Rate 43 (60-); Glucose, Blood 179 mg/dL (70-99); Phosphorus, Blood 2.9 mg/dL (2.5-4.9); Potassium, Blood 4.7 mmol/L (3.5-5.5); Sodium, Blood 138 mmol/L (136-145)
[2020-03-02 03:58] LABS: BAND PERCENT MAN 36 % (0-8); BASOPHILS ABSOLUTE MAN 0.23 K/mm3 (0.00-0.23); BASOPHILS PERCENT MAN 2 % (0-2); EOSINOPHILS PERCENT MAN 0 % (0-6); LYMPHOCYTES ABSOLUTE MAN 0.23 K/mm3 (0.84-5.20); LYMPHOCYTES PERCENT MAN 2 % (21-46); MONOCYTES ABSOLUTE MAN 1.51 K/mm3 (0.16-1.47); MONOCYTES PERCENT MAN 13 % (4-13); SEG NEUTROPHILS PERCENT MAN 47 % (41-73); TOTAL CELLS COUNTED 100
--- NOTE | 2020-03-02 05:54 | NUR ---
SHIFT SUMMARY: PT CONTINUES TO BE ALERT AND ORIENTED. PT WAS TAKEN OFF 2L OF O2 VIA NC FOR ABOUT 1 HOUR, SPO2 DECREASED INTO THE HIGH 80'S, THEREFORE PT WAS PLACED BACK ON 2L. PT IS STILL IN AFIB, HOWEVER HR IS NOW IN THE 70'S-80'S. PT HAS DENIES CP/SOB T/O SHIFT. WHILE PT IS SLEEPING, HE WILL MOAN, HOWEVER WHEN AWAKENED PT WILL STATE HE IS NOT IN PAIN. SON STATES PT MOANS IN HIS SLEEP. OG TUBE HAD LESS THAN 15ML OF GREEN DRAINAGE. ABDOMEN DISTENTED, PT DENIES NAUSEA T/O SHIFT. RECTAL TUBE IN PLACE, HAVING 200ML OF BROWN LOOSE STOOL. ELIZONDO DRAINING HEYDI URINE. LEVOPHED TITRATED DOWN TO 7MCG/MIN, VASOPRESSIN 0.04 UNITS/HR, AMIODARONE @ .5MG/HR, NS @ 125ML/HR. WILL CONTINUE TO MONITOR PT UNTIL REPORT IS GIVEN TO ONCOMING SHIFT.
--- NOTE | 2020-03-02 08:00 | NUR ---
PT [place], BUT A&OX3. DENIES PAIN OR NAUSEA THIS AM. RIGHT UPPER AND LOWER EXTREMITIES CONTINUE WITH CONTRACTURES-PT BASELINE. ECG SHOWS SR WITH RATE 60-70'S WITH AMIODARONE DRIP @ 0.5 MG/MIN. MAP 60-65 WITH VASOPRESSIN @ 0.04 UNITS/MIN AND LEVOPHED DRIP @ 6 MCG/MIN. DP/PT PULSES FAINT AND LOWER EXTREMITIES DISCOLORED AND WAXY APPEARANCE. MILD GENERALIZED EDEMA. EXTREMITIES ELEVATED ON PILLOWS. LUNGS DIMINISHED IN THE BASES. NO NOTED SOB. OCCASIONAL MOIST COUGH-PRODUCTIVE OF SCANT TANISH SPUTUM. SATS>90% ON 2L N/C. NGT WITH SCANT GREEN BILIOUS DRAINAGE TO LIS. ABDOMEN REMAINS DISTENDED, BUT IMPROVED FROM 03/01/20. RECTAL TUBE CONTINUES TO DRAIN MODERATE AMOUNT OF BROWN, LIQUID STOOL. PT MICHAEL AREA , PANUS, AND SCROTUM REDENED WITH YEAST-LIKE APPEARANCE. MEPILEX INTACT TO COCCYX/BUTTOCKS. PT POSTIONED TO COMFORT ON RIGHT SIDE UTILIZING CEILING LIFT.
[2020-03-02 13:23] LABS: Percent Saturation 6.7 % (20.0-50.0)
--- NOTE | 2020-03-02 15:27 | NUR ---
PT HAS BEEN RESTING QUIETLY THIS AFTERNOON. SBP 100-120'S. VASOPRESSIN ON STANDBY-LEVOPHED @ 2 MCG/MIN.
--- NOTE | 2020-03-02 19:14 | NUR ---
BOTH VASOPRESSIN AND LEVOPHED HAVE BEEN TITRATED OFF. MAINTAINING MAP>60. ALBUMIN 25% #2 OF 3 INFUSING. OCCASIONAL MOIST COUGH-PT UTILIZING JACY SUCTION HIMSELF. CALL LIGHT WITHIN REACH. PT WATCHING TV WITHOUT NOTED DISTRESS AT THIS TIME.
--- NOTE | 2020-03-02 22:22 | NUR ---
ASSUMPTION OF CARE: REPORT RECEIVED FROM MARIE CARVER. PT A&O, BUT [place] IN SR BUT WILL OCC REVERT BACK TO AFIB. PT HAS HX OF AFIB. LUNG SOUNDS CLEAR, DIM IN BASES. OCC PRODUCTIVE COUGH SPO2 >90% ON 2LNC. PT IS NPO AT THIS TIME WITH NGT IN PLACE-CLAMPED. FT IN PLACE DRAINING BROWN LIQUID STOOL. ELIZONDO IN PLACE DRAINING YELLOW URINE. PICC IN NITA INFUSING WITH AMIODARONE AT 0.5MG/HR AND NS AT 125MLS/HR. PIV IN R WRIST-PATENT AND SL. PT HAS CONTRACTURES TO RLE MAKING IT DIFFICULT FOR HIM TO MOVE. WILL CONTINUE TO MONITOR
[2020-03-03 03:32] LABS: Hematocrit 27.5 % (37.0-53.0); Hemoglobin 8.4 g/dL (13.5-17.5); Mean Corpuscular HGB 29.6 pg (26.0-34.0); Mean Corpuscular HGB Conc 30.5 g/dL (31.5-36.5); Mean Corpuscular Volume 97 fL (80-100); Mean Platelet Volume 8.9 fL (9.1-12.4); Platelet Count 220 K/mm3 (150-400); RDW Coefficient Variation 15.7 % (11.7-14.2); RDW Standard Deviation 56.1 fL (35.1-46.3); Red Blood Cell Count 2.84 M/mm3 (4.30-5.90); White Blood Cell Count 9.37 K/mm3 (4.00-11.30)
[2020-03-03 03:50] LABS: Anion Gap 5 mmol/L (6-16); Blood Urea Nitrogen 31 mg/dL (8-24); Bun/Creatinine Ratio 27.7 (12.0-20.0); CO2, Blood 25 mmol/L (21-32); Calcium, Blood 7.8 mg/dL (8.5-10.1); Chloride, Blood 114 mmol/L (98-108); Creatinine, Blood 1.12 mg/dL (0.60-1.20); Glomerular Filtration Rate >60 (60-); Glucose, Blood 108 mg/dL (70-99); Phosphorus, Blood 1.8 mg/dL (2.5-4.9); Potassium, Blood 4.2 mmol/L (3.5-5.5); Sodium, Blood 144 mmol/L (136-145)
[2020-03-03 03:56] LABS: BAND PERCENT MAN 23 % (0-8); BASOPHILS PERCENT MAN 0 % (0-2); EOSINOPHILS PERCENT MAN 0 % (0-6); LYMPHOCYTES ABSOLUTE MAN 0.18 K/mm3 (0.84-5.20); LYMPHOCYTES PERCENT MAN 2 % (21-46); MONOCYTES ABSOLUTE MAN 0.56 K/mm3 (0.16-1.47); MONOCYTES PERCENT MAN 6 % (4-13); NEUTROPHILS ABSOLUTE MAN 8.62 K/mm3 (1.96-9.15); SEG NEUTROPHILS PERCENT MAN 69 % (41-73); TOTAL CELLS COUNTED 100
--- NOTE | 2020-03-03 06:12 | NUR ---
NO ACUTE CHANGES T/O SHIFT. VSS. SR T/O SHIFT. PT CONTINUES TO HAVE A MOIST PRODUCTIVE COUGH. IS ABLE TO USE SUCTION ON OWN. SPO2 >90% ON 2LNC. NGT IS CLAMPED. RECTAL TUBE IN PLACE. DRAINAGE IS A RUST COLOR. BAG CHANGED OUT TO MONITOR OUTPUT. ELIZONDO IN PLACE DRAINING YELLOW URINE. PICC TO NITA. CONTINUOUS AMIO AT 0.5. NS AT 125MLS. WILL PASS REPORT TO ONCOMING SHIFT
--- NOTE | 2020-03-03 09:00 | NUR ---
Hayes of Care: Care assumed at 0700hr. Patient alert and oriented x4, sitting upright in bed watching tv. Denies pain, discomfort, SOB, or dyspnea. VSS, SpO2- 92-96% on 3L/NC. Moist congested cough noted, producing large amounts of thick yellow sputum. Sputum sample collected and sent to lab. Heart rhythm shows sinus in the 80's, Amiodarone gtt at 0.5 mg/hr, continuous infusion. Rectal tube in place, draining liquid brown/clear/red tinged stool. Barnes cath patent and intact, draining clear yellow urine. PICC line to NITA patent and intact, infusing without difficulty. Dr. Tyler to room this morning. Received orders to D/C NG tube (no output for last 24hr). Also received ordered to D/C heparin SC injections (concern for bleeding), and to advance diet to clear liquids. Also spoke with Dr. Ferguson this morning, received orders to change patient to PCU status. Call light in reach, makes needs known. Will continue to monitor for pain, safety, comfort.
--- NOTE | 2020-03-03 13:19 | NUR ---
Echocardiogram performed.
[2020-03-03 15:27] LABS: Hematocrit 33.7 % (37.0-53.0); Hemoglobin 10.1 g/dL (13.5-17.5)
--- NOTE | 2020-03-03 18:09 | NUR ---
Shift Summary: Patient awake for most of shift watching tv. Continues to be alert and oriented x4, and states to "feel better today", calm and cooperative with staff. C/o headache pain r/t coughing, effectively managed with x1 prn dose of Tylenol, no other c/o pain. Continues to deny dyspnea/SOB, but appears SOB while lying flat or after period of coughing. SpO2 92-96% on 3-4L/NC, but will decrease to high 80's after coughing or if NC becomes displaced. Thick yellow secretions with cough, patient uses oral suctioning to expel. Call placed to Dr. Tyler this evening, received order for Mucinex PO BID, and also to D/C maintenance fluids as patient is nearly 8L over in I/O and is tolerating adequate amount of PO intake. Patient also tolerated PO pills whole with water without difficulty. Rectal tube remains in place, 200ml out this shift. Stool appeared blood tinged this morning but is now brown, remains liquid. H+H remains stable, last value obtained at 1500hr, no s/s of active bleeding. PICC line to NITA remains patent and intact, infusing without difficulty. Call light in reach makes needs known. Will continue to monitor until report to NOC shift RN.
--- NOTE | 2020-03-03 19:51 | NUR ---
PT REPOSITIONED, PM CARE DONE PT COUGHING U COPIOUS AMOUNTS OF THICK YELLOW SPUTUM AND SX SELF WITH JACY VSS 3LNC PT GIVEN EVENING SNACK OF DIET JELLO-YELLOW IN COLOR RECTAL TUBE IN PLACE ELIZONDO CARE DONE
--- NOTE | 2020-03-03 20:29 | NUR ---
PT GIVEN 2100 MEDS SWALLOWED MEDICATIONS WITHOUT DIFFICULTY PT CONTINUES TO COUGH UP COPIOUS AMOUNTS OF SPUTUM PT C/O KINK IN THE NECK-PT REPOSITION, PROVIDED FOR COMFORT VSS NO CHANGES IN PATIENT STATUS
--- NOTE | 2020-03-03 23:10 | NUR ---
PT ENCOURAGED TO DB AND COUGH, STILL PRODUCING LARGE AMOUNTS OF SPUTUM, VSS, O2 4L NC PT GIVEN ICE WATER PER REQUEST
--- NOTE | 2020-03-03 23:38 | NUR ---
PT CONTINUES TO COUGH COPIOUS AMOUNTS OF SPUTUM, SATS 86-[address] THACKER CALLED LASIX 40 MG IV ORDERED WILL ADMINISTER AND CONTINUE TO MONITOR
--- NOTE | 2020-03-03 23:50 | NUR ---
ASSUMED CARE ASSUMED CARE OF PATIENT. PT REMAINS ON 5L NC. FREQUENT MOIST COUGH PRODUCTIVE OF MODERATE AMOUNTS OF CLEAR SPUTUM. RR 22-24. LASIX 40MG IV GIVEN RECENTLY BY PREVIOUS NURSE.
[2020-03-04 04:15] LABS: BASOPHILS ABSOLUTE AUTO 0.04 K/mm3 (0.00-0.23); BASOPHILS PERCENT AUTO 0 % (0-2); EOSINOPHILS ABSOLUTE AUTO 0.08 K/mm3 (0.00-0.68); EOSINOPHILS PERCENT AUTO 1 % (0-6); Hematocrit 33.5 % (37.0-53.0); IMMATURE GRAN ABSOLUTE AUTO 0.15 K/mm3 (0.00-0.10); IMMATURE GRAN PERCENT AUTO 1 % (0-1); LYMPHOCYTES ABSOLUTE AUTO 0.67 K/mm3 (0.84-5.20); LYMPHOCYTES PERCENT AUTO 5 % (21-46); MONOCYTES PERCENT AUTO 8 % (4-13); Mean Corpuscular HGB 29.1 pg (26.0-34.0); Mean Corpuscular HGB Conc 29.9 g/dL (31.5-36.5); Mean Corpuscular Volume 97 fL (80-100); Mean Platelet Volume 8.9 fL (9.1-12.4); NEUTROPHILS ABSOLUTE AUTO 12.19 K/mm3 (1.96-9.15); NEUTROPHILS PERCENT AUTO 85 % (41-73); Platelet Count 272 K/mm3 (150-400); RDW Coefficient Variation 15.7 % (11.7-14.2); RDW Standard Deviation 56.5 fL (35.1-46.3); Red Blood Cell Count 3.44 M/mm3 (4.30-5.90); White Blood Cell Count 14.33 K/mm3 (4.00-11.30)
[2020-03-04 04:45] LABS: Albumin, Blood 2.8 g/dL (3.4-5.0); Anion Gap 5 mmol/L (6-16); Blood Urea Nitrogen 26 mg/dL (8-24); Bun/Creatinine Ratio 24.8 (12.0-20.0); CO2, Blood 25 mmol/L (21-32); Calcium, Blood 7.7 mg/dL (8.5-10.1); Chloride, Blood 109 mmol/L (98-108); Creatinine, Blood 1.05 mg/dL (0.60-1.20); Glomerular Filtration Rate >60 (60-); Glucose, Blood 149 mg/dL (70-99); Phosphorus, Blood 1.9 mg/dL (2.5-4.9); Potassium, Blood 3.9 mmol/L (3.5-5.5); Sodium, Blood 139 mmol/L (136-145)
[2020-03-04 04:48] LABS: Percent Saturation 18.2 % (20.0-50.0)
--- NOTE | 2020-03-04 06:45 | NUR ---
SHIFT SUMMARY PT WITH INCREASINGO2 DEMANDS DURING NOC. O2 INITIALLY AT 3LNC, BUT INCREASED TO 7L OXYMIZER. APPEARS DYSPNEIC, BUT PT DENIES WHEN ASKED. LUNGS WITH INSPIRATORY/EXPIRATORY WHEEZES T/O. FREQUENT MOIST COUGH, PRODUCTIVE OF THICK WHITE SPUTUM. PT CONVERTED TO AFIB, RATE 100-120s AT APPROXIMATELY 0115. AMIODARONE GTT CONTINUES @ 0.5MG/MIN. BP STABLE. ELIZONDO PATENT AND DRAINING YELLOW URINE- 1700 CC TOTAL FOR SHIFT. PICC LINE TO NITA. WILL REPORT TO DAY SHIFT RN WHEN AVAILABLE.
--- NOTE | 2020-03-04 08:45 | NUR ---
Walker of Care: Care assumed at 0700hr. Patient alert and oriented x4, sitting upright in bed. Denies pain or discomfort. Also denies dyspnea/SOB, but appears to have increased work of breathing (accessory muscle use), and audible congestion/wheezing. Patient on NC oxymizer at 9L at shift change, SpO2-88-91%. Patient SpO2 then decreased to mid 80's and oxymizer titrated up to 12L. Spoke with Dr. Ferguson at that time and received orders to place patient on BiPAP mask. Judith RT then to room and placed patient on BiPAP mask at 10/5/40%. Tolerating mask without difficulty, now appears calm and comfortable (decreased work of breathing), SpO2-96-98%. Patient in A-fibb, rate 110-130's at shift change. Implemented new orders per Dr. Ferguson to d/c Amiodarone gtt and start cardizem gtt. Cardizem gtt started at 5mg/hr at approx 0730hr, BP remains wnl and stable. Barnes cath patent and intact, draining clear yellow urine. Rectal tube remains in place, stool this morning again shows some red tinge, also brown and loose, small amount in tube only. Plan to collect stool sample for guiac test. PICC line patent and intact, infusing without difficulty. Call light in reach, makes needs known. Will continue to monitor for pain, safety, comfort.
[2020-03-04 13:54] LABS: Stool Occult Blood Guaiac 1 Pos (Neg)
--- NOTE | 2020-03-04 18:08 | NUR ---
Shift Summary: Patient work of breathing and audible congestion greatly improved after use of BiPAP mask this morning. Tolerated breaks from BiPAP x2 for approx 2hr, without difficulty. Also able to decrease Oxymizer from 15L to 10L while off BiPAP, spO2-93-97%. Patient continues to deny dyspnea or SOB throughout shift, but work breathing increased after lying flat for ceiling lift, and patient encouraged to use BiPAP (10/5/40%). Additional dose of lasix given at approx 1200hr per Dr. Ferguson. 2L of urine output this shift, clear/yellow. Tolerating full liquid diet without difficulty, ate approx of 50% of lunch and dinner. 300ml output from rectal tube. Stool again showed some blood tinge this morning but now only liquid brown. Positive quiac obtained from sample, no new orders from Dr. Ferguson. PICC remains patent and intact, infusing without difficulty. Call light in reach, makes needs known. Will continue to monitor until report to NOC shift RN.
--- NOTE | 2020-03-04 19:30 | NUR ---
ASSUMED CARE OF PT, HE IS NOTED RESTING QUIETLY RECLINING IN BED AND WATCHING TV, DENIES NEEDS AT THIS TIME, STATES THAT HE WILL CALL WHEN READY TO BE PLACED ON BIPAP FOR SLEEP. CARDIZEM GTT NOTED INFUSING AT 10 MG/HR AT THIS TIME, RHYTHM SINUS WITH RATE IN THE UPPER 80S, PRESSURES ARE NOTED HYPERTENSIVE AT TIMES, WILL MONITOR. RESP RATE BETWEEN 20 AND 30 AT REST, SATS ARE MID TO UPPER 90S WITH OXYMIZER MASK AT 9 L/MIN, WILL MONITOR.
[2020-03-05 04:08] LABS: BASOPHILS ABSOLUTE AUTO 0.02 K/mm3 (0.00-0.23); BASOPHILS PERCENT AUTO 0 % (0-2); EOSINOPHILS PERCENT AUTO 0 % (0-6); Hematocrit 30.7 % (37.0-53.0); Hemoglobin 9.3 g/dL (13.5-17.5); IMMATURE GRAN ABSOLUTE AUTO 0.35 K/mm3 (0.00-0.10); IMMATURE GRAN PERCENT AUTO 3 % (0-1); LYMPHOCYTES ABSOLUTE AUTO 0.49 K/mm3 (0.84-5.20); LYMPHOCYTES PERCENT AUTO 4 % (21-46); MONOCYTES ABSOLUTE AUTO 0.22 K/mm3 (0.16-1.47); MONOCYTES PERCENT AUTO 2 % (4-13); Mean Corpuscular HGB 28.8 pg (26.0-34.0); Mean Corpuscular HGB Conc 30.3 g/dL (31.5-36.5); Mean Corpuscular Volume 95 fL (80-100); NEUTROPHILS ABSOLUTE AUTO 9.97 K/mm3 (1.96-9.15); NEUTROPHILS PERCENT AUTO 90 % (41-73); Platelet Count 250 K/mm3 (150-400); RDW Coefficient Variation 15.4 % (11.7-14.2); RDW Standard Deviation 54.2 fL (35.1-46.3); Red Blood Cell Count 3.23 M/mm3 (4.30-5.90); White Blood Cell Count 11.05 K/mm3 (4.00-11.30)
[2020-03-05 04:25] LABS: Albumin, Blood 2.7 g/dL (3.4-5.0); Anion Gap 4 mmol/L (6-16); Blood Urea Nitrogen 28 mg/dL (8-24); Bun/Creatinine Ratio 28.1 (12.0-20.0); CO2, Blood 26 mmol/L (21-32); Calcium, Blood 8.1 mg/dL (8.5-10.1); Chloride, Blood 110 mmol/L (98-108); Glomerular Filtration Rate >60 (60-); Glucose, Blood 211 mg/dL (70-99); Potassium, Blood 4.5 mmol/L (3.5-5.5); Sodium, Blood 140 mmol/L (136-145)
--- NOTE | 2020-03-05 07:12 | NUR ---
PT RESTS QUIETLY THROUGHOUT SHIFT, CARDIZEM GTT TITRATED DOWN TO 5 MG/HR AT 2340 FOR HEART RATE IN THE 70S. TOLERATES BIPAP WELL, FREQUENT INQUIRIES REGARDING MEDICATIONS AND TREATMENTS AND PT CONTINUES COMPLIANT WITH RECOMMENDATIONS AND EDUCATION REGARDING PULMONARY TOILET. SATS MAINTAIN WITH OXYMIZER MASK AT 9 L/MIN OR BIPAP WITH PRESSURES 10/5, FIO2 35%, RESP RATE 20-30S, EXPIRATORY WHEEZES CONTINUE THROUGHOUT NOC, COARSE LUNG SOUNDS IMPROVE FOLLOWING COUGH AND DEEP BREATH HOWEVER DO NOT RESOLVE, PT REPORTS INCREASED SPUTUM FOLLOWING BIPAP USE. CONTINUES TOLERATING FULL LIQUID DIET WELL, ABD DISTENTION CONTINUES WITHOUT INCREASING, 150 ML OF GREEN/BROWN LIQUID STOOL THIS SHIFT. ELIZONDO CATH DRAINING CLEAR HEYDI URINE TO GRAVITY.
--- NOTE | 2020-03-05 07:16 | NUR ---
ASSUMED CARE REPORT FROM MARIE WHITE. PATIENT IN CONTACT ISOLATION FOR C-DIFF.
--- NOTE | 2020-03-05 08:04 | NUR ---
MD VISIT DR. SANTAMARIA IN. ORDER FOR IMMODIUM.
--- NOTE | 2020-03-05 11:55 | NUR ---
MD VISIT DR. SANDERS IN. WILL TRANSITION TO [facility].
--- NOTE | 2020-03-05 14:04 | NUR ---
BIOX 92 % ON RA
--- NOTE | 2020-03-05 14:45 | NUR ---
MD VISIT DR. SANTAMARIA STOPPED BY FOR AN UPDATE
--- NOTE | 2020-03-05 15:06 | NUR ---
MOVED PATIENT TO CHAIR WITH LIFT FOR PHYSICAL THERAPY.
--- NOTE | 2020-03-05 16:23 | NUR ---
Initial spiritual care note: Mr. Johnson was talkative and appeared to enjoy being heard and affirmed. He blames his decline on lack of proper care at the SNF he was staying in before [facility]. He spoke at lenght about missing being up and active. He's had many life changes and is worried about continued decline. I provided gentle psychosocial rehabilitation counselor and emotional support. I will remain available.
--- NOTE | 2020-03-05 17:32 | NUR ---
CARDIZEM GTT STOPPED 1654
--- NOTE | 2020-03-05 18:12 | NUR ---
PATIENT OOB TO CHAIR FOR SHORT WHILE. WAS RESISTANT TO WORKING WITH PT AND GETTING INTO CHAIR WITH LIFT. SAID IT WAS TOO MUCH TROUBLE AND HE DIDN'T HAVE A GOOD PLACE TO PUT HIS SX CATHETER AND HIS CALL LIGHT. VERY LARGE ABDOMEN. BACK TO BED WITH LIFT WITH ASSISTANCE FROM LETICIA BAEZA, ELECTRICAL TIMING DEVICE CALIBRATOR. SOILED LINEN FROM LEAKY RECTAL TUBE. RECTAL TUBE FLUSHED AND LINEN CHANGED. PARTIAL BATH. DIFFICULT FOR PATIENT TO ROLL BACK AND FORTH BECAUSE OF LARGE ABDOMEN.
--- NOTE | 2020-03-05 19:29 | NUR ---
REPORT GIVEN TO MARIE WHITE.
--- NOTE | 2020-03-05 19:38 | NUR ---
ASSUMED CARE, REPORT RECEIVED. PT DENIES NEEDS AT THIS TIME, PLAN TO TRANSFER TO MEDICAL FLOOR PER ROUSTABOUT HAND.
--- NOTE | 2020-03-05 21:05 | NUR ---
ASSUMED CARE FROM CINDY IN ICU. PATIENT ICU TRANSFER TO ROOM 331. ARRIVED VIA GURNEY. TRANSFERRED USING A LIFT. LUCIO IS AOX3, COOPERATIVE. GETS SOB WITH ROLLING HIM FROM SIDE TO SIDE. RECTAL TUBE NOTED TO HAVE LEAKED. CLEANSED UP BOTTOM AND REPOSITIONED TUBE IT WAS KINKED. LIQUID BROWN STOOL NOTED. DRESSING TO BOTTOM STILL INTACT. RASH NOTED IN GROIN AND UNDER PANUS FOLDS. NYSTATIN POWDER IS ON. CATHETER PATENT AND DRAINING YELLOW URINE. CATH CARE PROVIDED. BLE CONTRACTED SOME FROM PREVIOUS SURGURIES, STATES RIGHT ANKLE BROKEN, PLACED ON PILLOW. REDNESS NOTED TO THIS LEG, WARM TO TOUCH, STATES THAT IS NORMAL FOR HIM. LUNG SOUNDS DIMINISHED WITH SOME WHEEZES. ON RA. SOB ON ROLLING. ABDOMIN DISTENDED AND WHEN ROLLING HE HAS SOME PROTUSION LIKE A HERNIA ABOVE UMBILICA, STATES HE HAS HAD IT SINCE HE WAS A KID. PICC LINE TO LEFT UPPER ARM FLUSHED. IV TO RIGHT HAND EXPOSED THEREFORE DC'D. HR IRREGULAR, DENIES CHEST PAIN OR PALPITATIONS. SETTLED INTO ROOM, CALL LIGHT GIVEN.
--- NOTE | 2020-03-05 23:06 | NUR ---
PATIENT DOING WELL, RECTAL TUBE NOT LEAKING. WILL CONTINUE TO MONITOR. IV INFUSING.
--- NOTE | 2020-03-06 00:17 | NUR ---
LUCIO PLACED ON CPAP WITH 2 LITERS OF O2 BLED INTO IT. CHECKED RECTAL TUBE AGAIN, SMEARS ON ATTENDS BUT NO LEAKAGE. SUCTION SET UP EARLIER WHEN RT WAS IN ROOM FOR BREATHING TREATMENT. CALL LIGHT IN REACH. WILL CONTINUE TO MONITOR.
--- NOTE | 2020-03-06 01:54 | NUR ---
LUCIO WAS PULLING OFF MASK AND PULSE OX, ALARM WAS SOUNDING. STATES HE WANTS TO LEAVE IT OFF FOR A WHILE. PUT NC BACK ON HE WAS 87 % ON RA. PLACED 2 LITERS NC. SATS BACK IN THE 90'S.
[2020-03-06 06:18] LABS: Vancomycin, Trough 12.8 ug/mL (5.0-10.0)
--- NOTE | 2020-03-06 06:40 | NUR ---
SHIFT SUMMARY: LUCIO WAS A ICU TRANSFER TO THE FLOOR. HE CAME IN FOR SEPTIC SHOCK, GASTERENTERISIS. TURNED OUT HE HAD C-DIFF AND IS ON CONTACT ISOLATION. AO WHEN ASKING QUESTIONS BUT THROUGHOUT THE NIGHT HE GOT CONFUSED, ASKING FOR REMOVAL OF HIS MASK WHEN IT WAS ALREADY OFF. NOT REMEMBERING THAT I WAS HIS NURSE, AND STATING ODD BALL STATEMENTS. HE WAS EASILY REORIENTED. HE ONLY TOLERATED THE CPAP FOR ABOUT 3 HOURS AND NEEDED TO BE PUT ON 2 LITERS NC TO KEEP SATURATIONS ABOVE 90%. LUNG SOUNDS ARE WHEEZES AND DIMINISHED. COUGH WAS NON-PRODUCTIVE FOR ME. IV TO RIGHT HAND DC'D. PICC LINE FLUSHED ALL LUMEN, PULLED LAB WITH NO PROBLEMS. RECTAL TUBE REMAINED IN PLACE AND DRAINED BROWN LOOSE STOOL. CATHETER REMAINED PATENT AND DRAINED YELLOW URINE. SKIN WITH REDNESS TO BLE AND BOTTOM. TELEMETRY REPORTED SINUS RYTHEM IN 70'S. GETS SOB WITH MOVEMENT FROM SIDE TO SIDE. CONTRACTORS IN LEGS PREVENTS GETTING UP, IS A LIFT PATIENT. CALL LIGHT REMAINED IN REACH. WILL REPORT TO DAY SHIFT RN.
[2020-03-06 08:24] LABS: Hematocrit 30.7 % (37.0-53.0); Hemoglobin 9.4 g/dL (13.5-17.5)
--- NOTE | 2020-03-06 15:23 | NUR ---
PATIENT HAS HAS EN UNEVENTFUL SHIFT. NO COMPLAINTS OF PAIN OR DISCOMFORT. RECTAL TUBE REMAINS IN PLACE DUE TO LOOSE BOWELS, HOWEVER THEY DO SEEM TO BE SLOWING DOWN; WILL REMOVE THE TUBE BY THE END OF SHIFT IF THE BOWELS HAVE SLOWED ADEQUATELY ENOUGH. PATIENT CONTINUES ON IV ABX WITHOUT S/SX OF ADVERSE REACTIONS NOTED OR REPORTED. PATIENT ASSISTED IN REPOSITIONING NEEDED. CONTINUES TO WEAR O2 TO ASSIST WITH RESPIRATIONS/LUNG FUNCTION. PATIENT REMAINS IN ISO FOR C-DIFF. CALLS APPROPRIATELY FOR STAFF ASSIST NEEDED. WILL CONTINUE TO MONITOR AND PROVIDE CARE NEEDED.
--- NOTE | 2020-03-06 19:20 | NUR ---
ASSUMED CARE. LUCIO AOX3, STILL PERIODS OF FORGETFULNESS. LUNG SOUNDS WHEEZES THROUGHOUT. O2 2L VIA NC SATS ON CONTINUOUS BIOX IN THE 90'S. TELE REPORTS SINUS RYTHEM. NO CHEST PAIN. DOES HAVE OCCATIONAL PAIN AFTER COUGHING. COUGH IS HARSH WITH SOME SECREATIONS THAT IS MOSTLY SILIVA, SUCTION IS HOOKED UP FOR PATIENT TO USE. EDEMA STILL NOTED TO BLE. SOB WITH EXERTION. GOOD APPETITE. CATHETER PATENT, RECTAL TUBE REMOVED, ATTENDS IN PLACE. NO BM NOTED. WILL MONITOR. NO PAIN. WILL CONTINUE TO MONITOR.
--- NOTE | 2020-03-06 20:21 | NUR ---
BLOOD SUGAR 209. HUMOLOG 5 UNITS GIVEN WITH REST OF NIGHT MEDS. ANTIBOTIC GERALD WILL SL AFTER IT IS COMPLETED. ASKED IF HE NEEDED TO BE CLEANED HE SAID NO. ENCOURAGED REPOSITION. HE SAID HE IS WATCHING TV AT THIS TIME.
--- NOTE | 2020-03-06 23:09 | NUR ---
RT JUST FINISHED GIVEING A BREATHING TX. ADMINISTERED NIGHT MEDS. PLACED ON CPAP.
--- NOTE | 2020-03-07 00:15 | NUR ---
LUCIO REQUESTED TO TAKE CPAP OFF, HE DID SLEEP FOR ABOUT 45 MINUTES. TOOK MASK OFF SO HE COULD HAVE A SNACK. STATED HE WILL CALL WHEN HE IS READY TO HAVE IT BACK ON.
--- NOTE | 2020-03-07 06:23 | NUR ---
SHIFT SUMMARY: LUCIO ATTEMPTED SEVERAL TIMES TO USE THE CPAP LAST NIGHT. HE HAS DIFFICULTY WITH IT HE BUILDS UP ALOT OF SILIVA AND SPUTUM WHEN WEARING IT. HE IS UNABLE TO CLEAR HIS THROAT WITH SUCTION WITH MASK ON. WITH HIS DECREASE IN MOBILITY TO BUE HE IS UNABLE TO LIFT THE MASK TO CLEAR HIS MOUTH. HE DID WEAR IT THREE TIMES FOR AT LEAST AN HOUR AND HALF AT A TIME. HE USED NC THE OTHER TIMES. DID NOT REALLY MOVE POSITIONS IN BED DUE TO HIS SIZE AND DIFFICULTY IN BREATHING WHEN ABDOMIN IS COMPRESSED. REPORTED PAIN TO THE RUQ MOSTLY DURING MOVING AND COUGHING. THERE IS SOME BRUISING ON THAT SIDE POSSIBLY FROM LOVENOX INJECTIONS. INSTRUCTED TO SPLINT WHEN COUGHING. IV ANTIBOTIC INFUSED WITH NO PROBLEMS. WAS ABLE TO SWALLOW ALL MEDS WHOLE. NO BM NOTED THIS SHIFT, ONLY A SMEAR IN ATTENDS. CATHETER REMAINED PATIENT AND DRAINING. HAS SUCTION AT BEDSIDE TO CLEAR THROAT. NO OTHER CHANGES TO NOTE THIS SHIFT. VS WNL. AFEBRILE. CALL LIGHT IN REACH.
[2020-03-07 07:04] LABS: Hematocrit 30.6 % (37.0-53.0); Hemoglobin 9.4 g/dL (13.5-17.5); Mean Corpuscular HGB 28.9 pg (26.0-34.0); Mean Corpuscular HGB Conc 30.7 g/dL (31.5-36.5); Mean Corpuscular Volume 94 fL (80-100); Mean Platelet Volume 9.1 fL (9.1-12.4); Platelet Count 301 K/mm3 (150-400); RDW Coefficient Variation 15.3 % (11.7-14.2); RDW Standard Deviation 52.8 fL (35.1-46.3); Red Blood Cell Count 3.25 M/mm3 (4.30-5.90); White Blood Cell Count 12.89 K/mm3 (4.00-11.30)
[2020-03-07 07:22] LABS: Anion Gap 5 mmol/L (6-16); Blood Urea Nitrogen 55 mg/dL (8-24); Bun/Creatinine Ratio 39.9 (12.0-20.0); CO2, Blood 27 mmol/L (21-32); Calcium, Blood 8.1 mg/dL (8.5-10.1); Chloride, Blood 106 mmol/L (98-108); Creatinine, Blood 1.38 mg/dL (0.60-1.20); Glomerular Filtration Rate 53 (60-); Glucose, Blood 147 mg/dL (70-99); Potassium, Blood 4.6 mmol/L (3.5-5.5); Sodium, Blood 138 mmol/L (136-145); Vancomycin, Trough 14.3 ug/mL (5.0-10.0)
[2020-03-07 07:43] LABS: BAND PERCENT MAN 1 % (0-8); BASOPHILS PERCENT MAN 0 % (0-2); EOSINOPHILS PERCENT MAN 0 % (0-6); LYMPHOCYTES PERCENT MAN 7 % (21-46); METAMYELOCYTE ABSOLUTE MAN 0.12 K/mm3 (0.00-0.00); METAMYELOCYTE PERCENT MAN 1 % (0-0); MONOCYTES PERCENT MAN 7 % (4-13); MYELOCYTE ABSOLUTE MAN 0.25 K/mm3 (0.00-0.00); MYELOCYTE PERCENT MAN 2 % (0-0); NEUTROPHILS ABSOLUTE MAN 10.69 K/mm3 (1.96-9.15); SEG NEUTROPHILS PERCENT MAN 82 % (41-73); TOTAL CELLS COUNTED 100
--- NOTE | 2020-03-07 17:48 | NUR ---
SHIFT SUMMARY PT A&OX4, VSS, [place]/HEARING AID RIGHT EAR, USES LEFT HAND WELL, REPOSITIONED WHEN ENCOURAGED AND ASSISTED WITH 2 PP MAX ASSIST, BLE ELEVATED ON PILLOWS, NEW MEPILEX APPLIED TO COCCYX. ELIZONDO PATENT & DRAINING YELLOW URINE, STAT LOCK ON, OFF FLOOR; VOIDING WELL. LIZA PO, DENIES N&V. SPLINTING RLQ WITH COUGH; ICE ON, WHICH PT REP HAS IMPROVED PAIN LEVEL. PICC LUE, FLUSHES WELL; IV ABX INFUSED PER EMAR; SL OTHERWISE. TCDB & I.S. EDU & ENC; PT DEMONSTRATED; ENC PT TO CLOSE MOUTH AND INTAKE OXYGEN THROUGH NC - 3L. WILL REPORT TO ONCOMING NOC RN.
--- NOTE | 2020-03-07 23:36 | NUR ---
PT HYPOTENSIVE AND CONT BIOX NOT ABLE TO READ, MACHINE STATES "LOW PERFUSION INDEX". CALL PLACED TO HOSPITALIST. DR. LUGO ORDERED HOLD CARDIZEM AND ADMINISTER NS 100ML/HR X 1L.
[2020-03-08 05:45] LABS: PCO2 Arterial 43.1 mmHg (35-45); PO2 Arterial 94 mmHg (80-100); pH Blood Arterial 7.16 (7.35-7.45)
--- NOTE | 2020-03-08 05:53 | NUR ---
PT NOT RESPONDING AT BASELINE. MOANS AND OPENS EYES W/STERNAL RUB BUT IS NOT SPEAKING CLEARLY. UNABLE TO GIVE NAME, DATE, OR LOCATION. BP NOT REGISTERING. PT FEELS COLD TO TOUCH. SKIN DRY. HYPOTHERMIC. CBG 113. 02 WNL ON 3L VIA NC. CALL PLACED TO DR. DEJESUS. DR. DEJESUS IN TO SEE PT. STAT ABG, LACTIC ACID, AND 1000MLS NS WIDE OPEN ORDERED. T/F PT TO ICU. REPORT CALLED TO RN IN ICU 6. PT T/F TO ICU AT 0555.
[2020-03-08 05:59] LABS: Hematocrit 23.1 % (37.0-53.0); Hemoglobin 6.7 g/dL (13.5-17.5); Mean Platelet Volume 9.8 fL (9.1-12.4); NRBC ABSOLUTE 0.38 K/mm3 (0.00-0.02); NRBC Auto 0.8 /100 WBC (0.0-0.2); Platelet Count 359 K/mm3 (150-400); RDW Coefficient Variation 15.9 % (11.7-14.2); RDW Standard Deviation 56.5 fL (35.1-46.3); Red Blood Cell Count 2.31 M/mm3 (4.30-5.90); White Blood Cell Count 45.56 K/mm3 (4.00-11.30)
[2020-03-08 06:02] LABS: Mean Corpuscular Volume 100 fL (80-100)
[2020-03-08 06:27] LABS: Bun/Creatinine Ratio 27.8 (12.0-20.0); Calcium, Blood 7.7 mg/dL (8.5-10.1); Creatinine, Blood 2.48 mg/dL (0.60-1.20); Potassium, Blood 6.4 mmol/L (3.5-5.5)
--- NOTE | 2020-03-08 07:13 | NUR ---
ASSUMED CARE OF PT THIS AM PT. CURRENTLY ON BIPAP, 10/28, 50%. PALE IN COLOR. ABLE TO ANSWER SIMPLE QUESTIONS AND FOLLOW SIMPLE COMMANDS. SPEECH DIFFICULT TO UNDERSTAND. DENIES PAIN AT THIS TIME. LS COARSE AND DIM.RR MIDS 30S.ABD VERY DISTENDED AND FIRM.BT NOTED. ZAMUDIO LIQUID STOOL NOTED. PT. ELIZONDO TEMP PROBE PLACED UPON ARRIVAL TO ICU TEMP 94.1. NO URINE OUTPUT. DEPENDENT EDEMA AND RED DISCOLORATION TO BILAT LE. PT. ABLE TO BUCKLEY. BEARHUGGER IN PLACE TO INCREASE TEMP. LEVOPHED GTT INFUSING AT 20MCG/KG/MIN, VASOPRESSIN INFUSING AT 0.04U/MIN. 2L NS BOLUS GIVEN.
--- NOTE | 2020-03-08 07:18 | NUR ---
ASSUMED PT CARE AT 0600 PT ARRIVED ON UNIT A TRANSFER FROM MEDICAL FLOOR SECONDARY TO ALTERED MENTAL STATUS AND HYPOTENSION. ON ARRIVAL PT WAS SHALLOW BREATHING; HOWEVER, PT WAS ALSO LYING FLAT WITH SEVERELY DISTENDED ABDOMEN. PT ON 4L OF OXYGEN VIA NC WITH OXYGEN SATURATIONS 96%. PT OPENS EYES TO VERBAL STIMULI AND FOLLOWS SIMPLE COMMANDS; HOWEVER, VERY PALE, DIAPHORETIC AND LETHARGIC. BP 54/28. FIRST LITER OF FLUIDS INFUSING WIDE OPEN. LEVOPHED STARTED AFTER OBTAINING STAT LABS FROM PICC LINE TO NITA. BP'S CONTINUED TO DECLINE EVEN AFTER LEVOPHED MAXED TO 30MCG/MIN. CALLED DR. DEJESUS FOR VASOPRESSIN ORDERS. PT REMAINED WITH BP 46/[address] SANDERS CALLED IN REGARDS TO LOW BP'S WITH MAP'S 30'S. NEW ORDERS FOR EPI GTT, BUT IN THE MEANTIME WHILE WAITING FOR EPI GTT AND VASOPRESSIN GIVE EPI 1MG IV PUSH. ADMINISTERED 1MG OF EPI AT 0645; PT'S BP INSTANTLY ELEVATED TO 187/103; HR 111. VASOPRESSIN STARTED AT 0645. TITRATED LEVOPHED BACK DOWN TO 15MCG/MIN. BP'S STABILIZED 112/85. PT PLACED ON BIPAP; 05/06; FIO2 40%. BIOX REMAINS MID 90'S. CRITICAL POTASSIUM OF 6.4; CALLED TO DR. DEJESUS WITH ORDERS FOR 25ML'S OF DEXTROSE 50% WITH 10 UNITS REGULAR INSULIN IV. LACTIC ACID CAME BACK CRITICAL AT 8.2; DR. SANDERS NOTIFIED AT 0730. ATTEMPTED TO PLACE RECTAL PROBE D/T UNABLE TO OBTAIN ACCURATE TEMPERATURE VIA TEMPORAL. UNABLE TO ADVANCE RECTAL PROBE. ENDED UP PULLING 18F ELIZONDO CATHETER AND PLACING 18G TEMP ELIZONDO PROBE. TEMPERATURE DISPLAYING 90.8; KWESI HUGGER OBTAINED. TEMP INCREASED TO 93.9 PRIOR TO HANDING OFF REPORT TO DAY SHIFT RN. LUNG SOUNDS DIMINISHED T/O ALL LOBES. PT NOTED TO BE NSR WITH BBB; HR 60'S. ABDOMEN SEVERLY DISTENDED, FIRM WITH HYPOACTIVE TONES T/O ALL QUADRANTS. PT HAD MINIMAL OUTPUT NOTED ON MEDICAL FLOOR; 125CC T/O SHIFT. NO OUTPUT SINCE TRANSFER TO UNIT. BEDSIDE REPORT HANDED OFF TO MARIE NAM
--- NOTE | 2020-03-08 07:55 | NUR ---
DR. SANDERS AT BEDSIDE TO ASSESS PT 18FR NG TUBE PLACED AT THIS TIME TO DECOMPRESS ABD. PALE YELLOW FLUID NOTED IN NG TUBE,PLACED TO SUCTION WITH 400 FLUID REMOVED, THEN PLACED TO LIS. PT. TO HAVE AN ADDITIONAL FLUID BOLUS MAKING THIS HIS 3RD LITER BOLUS. ADDITIONAL STOOL SAMPLE TO BE SENT. NO URINE OUTPUT FOR URINE COLLECTION. SEE FLOWSHEET FOR VS.
[2020-03-08 08:12] LABS: Vancomycin, Trough 17.2 ug/mL (5.0-10.0)
--- NOTE | 2020-03-08 08:52 | NUR ---
XRAY DONE OF ABD AND CHEST PER DR. SANEDRS SURGERY TO BE CONSULTED FOR DILATED BOWEL. BLOOD CULTURES DRAWN, AND 1 UNIT OF BLOOD GIVEN. PT. CONTINUES ON LEVOPHED AND VASO. PREPARING FOR STAT CT.
--- NOTE | 2020-03-08 09:34 | NUR ---
PT BACK FROM CT. DR. SANDERS ABLE TO REVIEW IMAGES, DR. SANDERS SPOKE WITH DR. MEJIA (SURG) REGARDING PT CASE. INTRA ABDOMINAL PRESSURE DONE READING OF 17 OBTAINED. PT. CONTINUES TO HAVE NO URINE OUTPUT. EKG COMPLETED. BLOOD TRANSFUSING AND PT REMAINS ON 20MCG/KG LEVOPHED AND VASOPRESSIN. ANTIBIOTICS INFUSING. BREAK FROM BIPAP AT THIS TIME ON 4LNC, PT TOLERATING WELL. YUHAAVIATAM. UPDATED ON PLAN OF CARE. SEE FLOW SHEET FOR VS TRENDS. PT REPOSITIONED IN BED. MICHAEL CARE DONE ONLY SMEAR OF YELLOW STOOL AT THIS TIME, UNABLE TO OBTAIN STOOL SAMPLE. OG REMAINS TO LIS.
--- NOTE | 2020-03-08 09:43 | NUR ---
DR. MEJIA AT BEDSIDE FOR EVAL. NO ADDTIONAL INTERVENTIONS AT THIS TIME.
[2020-03-08 10:21] LABS: PCO2 Arterial 38.9 mmHg (35-45); PO2 Arterial 75.9 mmHg (80-100); pH Blood Arterial 7.15 (7.35-7.45)
--- NOTE | 2020-03-08 11:00 | NUR ---
PT CONTINUES TO BE HYPOTENSIVE, LAB TO REDRAW PER. DR. SANDERS NEPHROLOGY TO BE CONSULTED. BICARB GTT STARTED AT 75ML/HR. PT S/O VANESSA UPDATED ON PT CONDIITON AT THIS TIME. PT. BACK ON BIPAP WITH SETTINGS CONTINUED. NO STOOL OR URINE OUPUT YET. PER DR. SANDERS GIVE 2AMPS OF BICARB IV PUSH NOW.
--- NOTE | 2020-03-08 11:30 | NUR ---
DR. SANDERS AT BEDSIDE TO DISCUSS PT CODE STATUS. PT REQUESTING S/O VANESSA BE NOTIFIED OF CONTINUED DECLINE. PT. PRESSORS INCREASED TO 30MCG/KG/MIN AND EPI GTT AT BEDSIDE ON STAND BY. PT AGREES TO INTUBATION HOWEVER NO CPR. ADDITIONAL 2AMPS OF BICARB ORDERED AND PUSHED PREPPING FOR INTUBATION.
--- NOTE | 2020-03-08 11:45 | NUR ---
DR. MELENDREZ CALLED FOR CONSULT PER DR. MELENDREZ ADDITIONAL LABS ADDED. PT. BICARB GTT INCREASED TO 150ML/HR PER DR. MELENDREZ. PLANS FOR EMERGENT DIALYSIS TODAY.
[2020-03-08 12:16] LABS: Hematocrit 21.5 % (37.0-53.0); Hemoglobin 6.7 g/dL (13.5-17.5); Mean Corpuscular HGB 30.7 pg (26.0-34.0); Mean Corpuscular HGB Conc 31.2 g/dL (31.5-36.5); Mean Corpuscular Volume 99 fL (80-100); Mean Platelet Volume 10.2 fL (9.1-12.4); NRBC ABSOLUTE 0.58 K/mm3 (0.00-0.02); Platelet Count 261 K/mm3 (150-400); RDW Standard Deviation 53.1 fL (35.1-46.3); Red Blood Cell Count 2.18 M/mm3 (4.30-5.90)
[2020-03-08 12:28] LABS: White Blood Cell Count 56.52 K/mm3 (4.00-11.30)
--- NOTE | 2020-03-08 12:40 | NUR ---
INTUBATION EPI GTT STARTED AT 3MCG/MIN, LEVOPHED INCREASED TO 30MCG/KG/MIN PER DR. SANDERS. PER DR. SANDERS 20 MG ETOMIDATE GIVEN AND 20MG ROCURONIUM PUSHED FOR INTUBATION. PT. INTUBATED WITH 8.0 ETT-23 AT LIP. POSITIVE COLOR CHANGE NOTED AND BILAT BREATH SOUNDS. CHEST XRAY ORDERED. PT. PLACED ON VENT AC 24, 500, 65%, PEEP 5. CRITICAL POTASSIUM RESULTED ALONG WITH CRITICAL WHITE COUNT RELAYED TO DR. SANDERS. BILAT WRIST RESTRAINTS PLACED POST EXTUBATION AND PROPOFOL GTT STARTED AT 35MCG/KG/MIN. CALL TO DR. ARANDA TO PLACE DIALYSIS CATHETER AT BEDSIDE FOR EMERGENT DIALYSIS.
[2020-03-08 12:44] LABS: Troponin I 0.47 ng/mL (0.000-0.040)
[2020-03-08 12:49] LABS: BAND PERCENT MAN 3 % (0-8); BASOPHILS PERCENT MAN 0 % (0-2); EOSINOPHILS PERCENT MAN 0 % (0-6); LYMPHOCYTES ABSOLUTE MAN 4.52 K/mm3 (0.84-5.20); LYMPHOCYTES PERCENT MAN 8 % (21-46); METAMYELOCYTE ABSOLUTE MAN 2.26 K/mm3 (0.00-0.00); METAMYELOCYTE PERCENT MAN 4 % (0-0); MONOCYTES ABSOLUTE MAN 1.69 K/mm3 (0.16-1.47); MONOCYTES PERCENT MAN 3 % (4-13); NEUTROPHILS ABSOLUTE MAN 48.04 K/mm3 (1.96-9.15); SEG NEUTROPHILS PERCENT MAN 82 % (41-73); TOTAL CELLS COUNTED 100
[2020-03-08 13:06] LABS: Bun/Creatinine Ratio 28.8 (12.0-20.0); Calcium, Blood 6.7 mg/dL (8.5-10.1); Creatinine, Blood 2.6 mg/dL (0.60-1.20)
[2020-03-08 13:07] LABS: Potassium, Blood 6.4 mmol/L (3.5-5.5)
[2020-03-08 13:11] LABS: Anion Gap 15 mmol/L (6-16); Blood Urea Nitrogen 76 mg/dL (8-24); Bun/Creatinine Ratio 29.3 (12.0-20.0); CO2, Blood 19 mmol/L (21-32); Calcium, Blood 6.5 mg/dL (8.5-10.1); Chloride, Blood 103 mmol/L (98-108); Creatinine, Blood 2.59 mg/dL (0.60-1.20); Glomerular Filtration Rate 26 (60-); Glucose, Blood 129 mg/dL (70-99); Potassium, Blood 6.3 mmol/L (3.5-5.5); Sodium, Blood 137 mmol/L (136-145)
--- NOTE | 2020-03-08 14:00 | NUR ---
DR. ARANDA AT BEDSIDE 12FR 15CM TRIALYSIS CATHETER PLACED TO RIGHT IJ.
--- NOTE | 2020-03-08 14:36 | NUR ---
PREDATORY ANIMAL TRAPPER AT BEDSIDE. ADDITIONAL CHEST XRAY ORDERED FOR LINE PLACEMENT.
--- NOTE | 2020-03-08 15:29 | NUR ---
ULTRASOUND COMPLETED. DIFFICULTY OBTAINING CONSISTANT BPS PERIPHERALLY. CONTINUING TO INCREASE PRESSORS FOR SUPPORT. EPI GTT AT 10MCG/MIN, LEVOPHED GTT AT 25MCG/KG/MIN AND VASOPRESSIN. PT ALSO CONTINUES ON BICARB INFUSION AT 150ML/HR. SCIENTIFIC LABORATORY SUPERVISOR AT BEDSIDE SETTING UP. FAMILY NOTIFIED, AND ARE COMING TO SEE PT. ART LINE PLACED TO RIGHT AXILLARY BY DR. SANDERS. NG SWITCHED TO OG. PALLIATIVE CARE TO MEET WITH PT. FAMILY
[2020-03-08 15:31] LABS: Base Excess Venous -12.1 mmol/L; Bicarbonate Venous 15.3 mmol/L (24.0-30.0); PO2 Venous 71.3 mmHg (38-42); pH Blood Venous 7.18 (7.34-7.37)
[2020-03-08 15:33] LABS: PCO2 Venous 44 mmHg (38-42)
--- NOTE | 2020-03-08 16:32 | NUR ---
DIALYSIS IN PROGRESS PT BECOMING HYPOTENSIVE DURING DIAYLSIS, PRESSORS TITRATED. ALBUMIN GIVEN BY RAIL GANG SUPERVISOR AWAITING BLOOD PRODUCTS.
--- NOTE | 2020-03-08 18:11 | NUR ---
SHIFT SUMMARY PT. REMAINS SEDATED AND INTUBATED. FAMILY IN TO SEE PT BRIEFLY TODAY. DIALYSIS CATH PLACED BY DR. ARANDA THIS AFTERNOON-PT HAD DIALYSIS TODAY HOWEVER NO FLUID WAS REMOVED PER DR. MELENDREZ. PT. REMAINS ON LEVOPHED AT 30 MCG/KG/MIN AND EPI AT 8MCG/MIN WELL VASOPRESSIN. PT. REMAINS ON BICARB GTT AT 150ML/HR. PT. HAS HAD NO URINE OUTPUT THIS SHIFT. ABD REMAINS VERY FIRM AND DISTENDED. PT. HAD 550 OUT FROM OG AND IT REMAINS TO LIS. PICC LINE DRESSING CHANGED THIS SHIFT. ART LINE PLACED THIS SHIFT BY DR. SANDERS FOR BETTER BP MONITORING. REPORT TO ONCOMING RN.
[2020-03-08 18:57] LABS: Source, Urine Catheter
[2020-03-08 19:08] LABS: Bilirubin, Urine Neg (Neg); Blood, Urine 5+ (Neg); Glucose Qualitative, Urine Neg (Neg); Ketones, Urine Neg (Neg); Leukocyte Esterase, Urine 1+ (Neg); Nitrite, Urine Neg (Neg); Protein, Urine 2+ (Neg); Urobilinogen, Urine NORM (Normal)
[2020-03-08 19:17] LABS: Appearance, Urine Hazy (Clear); Color, Urine Yellow (P-Yellow)
[2020-03-08 19:19] LABS: Squamous Epithelial Cells Few /hpf (Few)
[2020-03-08 19:20] LABS: Amorphous Mod (0-Heavy); Bacteria Mod /hpf
--- NOTE | 2020-03-08 19:57 | NUR ---
pt on dialysis and vetilator. Pt on three pressors. review with intesivist and met with family. Son and ex at bedside. Review of his symptoms and needs and plan of care. They are very reasonable and repect his wishes for limited care. Bedside nurse reviewed supportive care and dialysis nurse reviewed renal support. we discussed giving him time and intervention. Discussed that if he does not repond or improve may have to discuss alternate plan and end of life. Supportive conversation with family realyed my converstion siwth pt and how much he spoke of them and loved them. Prepeared them for what they would see when entering ICU. The did well held his had and talked with him. Moderate tolerance of dialysis improved with tranfussion. Spoke with night stocker nurse to contact son with updates pt bp up for now and some titration down of pressors. pt kps scor is 20 %. will review prognosis scoring agin with pain management nurse in am so can adjust plan of care.
[2020-03-08 20:17] LABS: Hemoglobin 6.8 g/dL (13.5-17.5); Mean Corpuscular HGB 31.2 pg (26.0-34.0); NRBC ABSOLUTE 0.51 K/mm3 (0.00-0.02); NRBC Auto 0.9 /100 WBC (0.0-0.2); Platelet Count 173 K/mm3 (150-400); RDW Coefficient Variation 17.2 % (11.7-14.2); RDW Standard Deviation 57.8 fL (35.1-46.3); Red Blood Cell Count 2.18 M/mm3 (4.30-5.90)
[2020-03-08 20:18] LABS: Mean Corpuscular Volume 92 fL (80-100)
[2020-03-08 20:20] LABS: White Blood Cell Count 54.63 K/mm3 (4.00-11.30)
[2020-03-08 20:28] LABS: PCO2 Arterial 38.4 mmHg (35-45); PO2 Arterial 64.2 mmHg (80-100); pH Blood Arterial 7.33 (7.35-7.45)
[2020-03-08 20:48] LABS: BAND PERCENT MAN 15 % (0-8); BASOPHILS PERCENT MAN 0 % (0-2); EOSINOPHILS PERCENT MAN 0 % (0-6); LYMPHOCYTES ABSOLUTE MAN 3.27 K/mm3 (0.84-5.20); LYMPHOCYTES PERCENT MAN 6 % (21-46); MONOCYTES ABSOLUTE MAN 0.54 K/mm3 (0.16-1.47); MONOCYTES PERCENT MAN 1 % (4-13); MYELOCYTE ABSOLUTE MAN 0.54 K/mm3 (0.00-0.00); MYELOCYTE PERCENT MAN 1 % (0-0); NEUTROPHILS ABSOLUTE MAN 50.25 K/mm3 (1.96-9.15); SEG NEUTROPHILS PERCENT MAN 77 % (41-73); TOTAL CELLS COUNTED 100
[2020-03-08 20:56] LABS: Albumin, Blood 2.7 g/dL (3.4-5.0); Albumin/Globulin Ratio 1.4 (0.8-1.8); Bun/Creatinine Ratio 27.8 (12.0-20.0); Calcium, Blood 6.2 mg/dL (8.5-10.1); Creatinine, Blood 1.98 mg/dL (0.60-1.20); Total Protein, Blood 4.7 g/dL (6.4-8.2)
--- NOTE | 2020-03-08 21:00 | NUR ---
ASSUMED PT CARE FROM MARIE NAM AT 1900 PT INTUBATED AND SEDATED. PROPOFOL AT 35MCG/KG/MIN. VENT SETTINGS: AC 16, TV 500, PEEP 5, FIO2 65%. HEMODIALYSIS CATH TO RIGHT IJ. RIGHT AXILLARY ARTERIAL LINE WITH PRESSURES NOTED TO BE SYSTOLIC 130'S-140'S. LEVOPHED INFUSING AT 30MCG/SIMRAN, VASOPRESSIN 0.04 UNITS/MIN, AND EPI GTT AT 5 MCG/MIN. DECREASED EPI TO 2MCG/MIN. SODIUM BICARB INFUSING AT 150MLS/HR. TEMP ELIZONDO CATH PATENT AND DRAINING TO GRAVITY; ANURIC. PT TO HAVE RECTAL TUBE PLACED AND OBTAIN C.DIFF SAMPLE. BEDSIDE REPORT GIVEN. WILL CONTINUE TO MONITOR.
[2020-03-08 21:10] LABS: Potassium, Blood 4.4 mmol/L (3.5-5.5)
--- NOTE | 2020-03-08 21:54 | NUR ---
UPDATE CALLED OUT TO DR. SANDERS REGARDING CRITICAL LAB VALUES. NEW ORDERS FOR CALCIUM CHLORIDE 4GM IV R/T LOW IONIZED CALCIUM, 1L NS R/T ELEVATED LACTIC ACID, INSULIN GTT D/T GLUCOSE 314, 1 UNIT OF PRBC'S SECONDARY TO LOW HGB, WELL ORDERS TO CALL DR. MEJIA IN REGARDS TO NEOSTYGMINE. DR. MEJIA CALLED AND STATED THAT HE DIDN'T SEE ANY CONTRAINDICATIONS; HOWEVER, SIDE EFFECT IS CARDIAC ARRHYTHMIAS; THEREFORE, CONTINUE CONTINUOUS CARDIAC MONITORING. DR. SANDERS CALLED BACK AND INFORMATION RELAYED; DR. SANDERS TO ENTER ORDERS.
[2020-03-08 22:50] LABS: International Normalized Ratio 1.92; Prothrombin Time Results 19.8 Sec (9.7-11.5)
[2020-03-09 03:51] LABS: Bicarbonate Venous 19.8 mmol/L (24.0-30.0); PCO2 Venous 35.7 mmHg (38-42); PO2 Venous 81.4 mmHg (38-42); pH Blood Venous 7.35 (7.34-7.37)
[2020-03-09 03:55] LABS: Hematocrit 21.8 % (37.0-53.0); Hemoglobin 7.5 g/dL (13.5-17.5); Mean Corpuscular HGB 31.1 pg (26.0-34.0); Mean Corpuscular HGB Conc 34.4 g/dL (31.5-36.5); Mean Corpuscular Volume 91 fL (80-100); Mean Platelet Volume 10.3 fL (9.1-12.4); NRBC ABSOLUTE 0.68 K/mm3 (0.00-0.02); NRBC Auto 1.8 /100 WBC (0.0-0.2); Platelet Count 153 K/mm3 (150-400); RDW Coefficient Variation 17.2 % (11.7-14.2); RDW Standard Deviation 56.6 fL (35.1-46.3); Red Blood Cell Count 2.41 M/mm3 (4.30-5.90)
[2020-03-09 04:18] LABS: Albumin, Blood 2.2 g/dL (3.4-5.0); Albumin/Globulin Ratio 1.2 (0.8-1.8); Bilirubin, Total 1.7 mg/dL (0.1-1.0); Bun/Creatinine Ratio 26.2 (12.0-20.0); Calcium, Blood 7.4 mg/dL (8.5-10.1); Creatinine, Blood 2.21 mg/dL (0.60-1.20); Globulin, Blood 1.8 g/dL (2.2-4.0); Magnesium, Blood 2.1 mg/dL (1.6-2.4); Phosphorus, Blood 7.5 mg/dL (2.5-4.9); Potassium, Blood 4.6 mmol/L (3.5-5.5)
[2020-03-09 04:32] LABS: BAND PERCENT MAN 20 % (0-8); BASOPHILS PERCENT MAN 0 % (0-2); EOSINOPHILS PERCENT MAN 0 % (0-6); LYMPHOCYTES ABSOLUTE MAN 2.27 K/mm3 (0.84-5.20); LYMPHOCYTES PERCENT MAN 6 % (21-46); METAMYELOCYTE ABSOLUTE MAN 0.75 K/mm3 (0.00-0.00); METAMYELOCYTE PERCENT MAN 2 % (0-0); MONOCYTES ABSOLUTE MAN 1.13 K/mm3 (0.16-1.47); MONOCYTES PERCENT MAN 3 % (4-13); MYELOCYTE ABSOLUTE MAN 0.75 K/mm3 (0.00-0.00); MYELOCYTE PERCENT MAN 2 % (0-0); NEUTROPHILS ABSOLUTE MAN 32.97 K/mm3 (1.96-9.15); SEG NEUTROPHILS PERCENT MAN 67 % (41-73); TOTAL CELLS COUNTED 100
--- NOTE | 2020-03-09 04:58 | NUR ---
UPDATE CALL OUT TO DR. SANDERS TO REPORT CRITICAL LAB RESULTS. NO NEW ORDERS. DID ASK FOR PARAMETERS REGARDING INSULIN GTT AND BLOOD SUGAR GOAL; GOAL TO KEEP BLOOD SUGAR AROUND 200; WILL ENTER NURSE NOTIFY.
--- NOTE | 2020-03-09 05:43 | NUR ---
END OF SHIFT SUMMARY PT HAS REMAINED INTUBATED/SEDATED. PROPOFOL AT 40MCG/KG/MIN. VENT SETTINGS AC 24, TV 500, PEEP 8, FIO2 90%. PT'S BIOX FLUCTUATES WITH REPOSITIONING. TENDS TO DROP OXYGEN SATURATIONS TO MID 80'S WHEN POSITIONED ON RIGHT SIDE; THEREFORE, REQUIRING MORE FIO2. ORDERS TO INCREASE PEEP TO 10 NEEDED; HOWEVER, NO CHANGE FROM PEEP INCREASING FROM 8 TO 10. PT ABLE TO OPEN EYES TO VERBAL STIMULI AND WITHDRAWAL FROM NOXIOUS STIMULI. UNABLE TO FOLLOW ANY COMMANDS. LUNG SOUNDS REMAIN COARSE RHONCHI T/O ALL LOBES WITH EXPIRATORY WHEEZES NOTED ALSO. PT HAS BEEN NSR WITH BBB AND PAC'S WITH HR 70'S. LEVOPHED CURRENTLY AT 18 MCG/MIN, VASOPRESSIN 0.04 UNITS/MIN. EPI GTT HAS REMAINED OFF FOR MOST OF SHIFT. SODIUM BICARB INFUSING AT 150CC/HR. INSULIN GTT STARTED AND CURRENTLY AT 4 UNITS/HR; ORDERS TO MAINTAIN AROUND 200 MG/DL. ABDOMEN REMAINS SEVERELY DISTENDED, FIRM, WITH HYPOACTIVE BTX4. INTRA-ABDOMINAL PRESSURE OBTAINED THIS SHIFT WITH A PRESSURE OF 31. TEMP ELIZONDO CATHETER IS PATENT AND DRAINING TO GRAVITY; TMAX 97.5. OLIGURIA WITH 70CC OUTPUT FOR SHIFT; DARK, TEA COLORED URINE. RECTAL TUBE PLACED PER ORDERS IN ORDER TO OBTAIN C.DIFF SAMPLE; HOWEVER, NO OUTPUT FROM RECTAL TUBE THIS SHIFT. PT PRODUCES GAS WHEN REPOSITIONED, WHICH PT HAS BEEN REPOSITIONED EVERY TWO HOURS. PT RECEIVED ONE UNIT OF PRBC'S D/T HGB 6.8; AFTER THE UNIT OF BLOOD HGB IMPROVED TO 7.5. FAMILY CALLED AND UPDATED ON PT'S CONDITION. WILL CONTINUE TO MONITOR UNTIL REPORT IS HANDED OFF TO ONCOMING RN.
[2020-03-09 06:14] LABS: PCO2 Arterial 39.6 mmHg (35-45); PO2 Arterial 74.5 mmHg (80-100); pH Blood Arterial 7.35 (7.35-7.45)
[2020-03-09 07:08] LABS: HBSAG SCREEN Negative (Negative); HEP A AB, IGM Negative (Negative); HEP B CORE AB, IGM Negative (Negative); HEP C VIRUS AB 0.1 (0.0-0.9)
[2020-03-09 10:06] LABS: Hematocrit 20.5 % (37.0-53.0); Hemoglobin 7.1 g/dL (13.5-17.5)
[2020-03-09 10:15] LABS: International Normalized Ratio 1.83; Prothrombin Time Results 18.9 Sec (9.7-11.5)
[2020-03-09 11:21] LABS: Creatinine, Blood 2.45 mg/dL (0.60-1.20)
[2020-03-09 11:22] LABS: Vancomycin, Trough 22.2 ug/mL (5.0-10.0)
--- NOTE | 2020-03-09 11:32 | NUR ---
CARE ASSUMED ASSESSMENT COMPLETED, PT INTUBTED, VENT AC 24, Vt 500, PEEP 8, FIO2 90%. SPO2 91%, RR 26-28, LS COARSE. SEDATED WITH PROPOFOL 40MCG, PT UNRESPONSIVE AT THIS TIME, DOES NOT MOVE EXTREMS OR OPEN EYES. PUPILS UNEQUAL, BOTH REACTIVE. HR 80'S SINUS WITH BBB AND PAC'S. BP PER ART LINE WNL. ABD SEVERELY DISTENDED, NO BT NOTED, OGT TO LIWS WITH BILE OUTPUT, RECTAL TUBE WITH SCANT BROWN LIQUID OUTPUT. ELIZONDO CATH IN PLACE WITH SCANT URINE OUT, DIALYSIS PLANNED FOR THIS AFTERNOON. ART LINE, DIALYSIS CATH, AND PICC LINE ALL WNL AND FLUSH WITHOUT DIFFICULTY.
--- NOTE | 2020-03-09 11:37 | NUR ---
UPDATE 'S KIMBERLY AND ROBERTO IN TO ASSESS PATIENT, NEW ORDERS RECEIVED. LABS DRAWN, ABD PRESSURE MEASURED AT 25, DR. MEJIA AWARE, HAS SPOKEN WITH DR. HARRIS AND PLANS TO SPEAK WITH FAMILY. VENT SETTINGS AND GTT SETTINGS UNCHANGED.
--- NOTE | 2020-03-09 13:29 | NUR ---
SEDATION VACATION PROPOFOL OFF, PT'S RR INCREASED TO 31, SPO2 DECREASED TO LOW 80'S, BP INCREASED TO 160/50. PT TURNS HEAD SLIGHTLY, DOES NOT APPEAR TO BE IN RESPONSE TO STIUMULUS. NO GRIMACING TO PAIN, NO EYE OPENING, NO MOVEMENT OF EXTREMS. PUPILLARY RESPONSE BRISK, PUPILS REMAIN UNEQUAL. SEDATION RESUMED AT PREVIOUS RATE, RT AT BEDSIDE FOR SUSTAINTED DESAT OF LOW-MID 80'S, PEEP INCREASED TO 10. SPO2 NOW 90%, WILL MEDICATE FOR COMFORT. DR. MEJIA HAS CONTACTED FAMILY, AWAITING DECISION ON PT'S CARE FROM FAMILY.
[2020-03-09 14:34] LABS: PCO2 Arterial 40.4 mmHg (35-45); PO2 Arterial 56.7 mmHg (80-100)
[2020-03-09 14:35] LABS: pH Blood Arterial 7.25 (7.35-7.45)
--- NOTE | 2020-03-09 15:02 | NUR ---
UPDATE PT DID NOT RECOVER FROM DESAT AFTER REPOSITIONING, REMAINS 80-83%. DR. HARRIS AT BEDSIDE, CHANGED PEEP TO 13 WITH NO CHANGE IN SPO2. AWARE OF ABG RESULTS, ORDER RECIEVED TO HOLD DIALYSIS. DR ATTEMPTING TO CONTACT PATIENT'S FAMILY. NO MORE CHANGES TO VENT PER DR. HARRIS, SPO2 REMAINS 80%. PT RESTING QUIETLY, NO S/SX DISTRESS NOTED AT THIS TIME.
--- NOTE | 2020-03-09 15:32 | NUR ---
Family in to see patient. Review of pt with intesivist. Plan is to talk with them about end of life care and withdrawing support. Reviewed with family his is not reponding to treatment and surgeons review of patient. Advised that at this point dialysis held due to instability. Advised we can stay the course but will have event. Discussed that withdrawing care and comfort and resptefull passisng is what we suggest. left them to discuss a plan and contact family.
--- NOTE | 2020-03-09 17:41 | NUR ---
END OF LIFE PT'S SPO2 AND BP'S CONTINUED TO DROP, DESPITE VENT SETTINGS AND INCREASES IN LEVOPHED. PT'S SON AND EX ARRIVED, SPENT SOME TIME AT BEDSIDE WITH PATIENT AND PALLIATIVE CARE RN. FAMILY INFORMED THAT PT'S VS WERE BECOMING WORSE, FAMILY STATED THAT WERE READY FOR COMFORT MEASURES, THEN LEFT FACILITY. DR. HARRIS NOTIFIED, PT PASSED AT 1628 BEFORE COMFORT SET WAS ABLE TO BE ORDERED. FAMILY NOTIFIED BY MARIE SALINAS. ROSALIO VALLADARES SPENCE, AND ANEESH NOTIFIED, [facility].
--- NOTE | 2020-03-09 17:51 | NUR ---
family sat with pt and talked with him. pt started to decline and bp dropping advised family he is declining. The stated they were ok with no further intervention and comfort. They did not want to stay. The requested a chplian see him for end of life prayer. pt passed quickly kati they left the room. notifed family no s/s of distress or pain. They are going home to look up his funneral plan and will notify us.
== END 2020-03-09 16:28 | DRG 871 ==
LOC: ER 11:27 → ICUW 14:53 → ICUE 14:53 → ICUW 15:59 → MEDS 03-05 21:10 → ICUE 03-08 05:53
PROVIDERS: Emergency Medicine; Internal Medicine; Internal Medicine Critical Care Medicine; Internal Medicine Nephrology; Internal Medicine Pulmonary Disease; Nurse Practitioner Acute Care; Pharmacist; Surgery; ADMIT Family Medicine
PROC: 0BH17EZ Insertion of Endotracheal Airway into Trachea, Via Natural or Artificial Opening (ICD-10-PCS; principal; 2020-02-29)
PROC: 5A1945Z Respiratory Ventilation, 24-96 Consecutive Hours (ICD-10-PCS; 2020-02-29)
PROC: 30233N1 Transfusion of Nonautologous Red Blood Cells into Peripheral Vein, Percutaneous Approach (ICD-10-PCS; 2020-02-29)
PROC: 02HV33Z Insertion of Infusion Device into Superior Vena Cava, Percutaneous Approach (ICD-10-PCS; 2020-02-29)
PROC: 3E053XZ Introduction of Vasopressor into Peripheral Artery, Percutaneous Approach (ICD-10-PCS; 2020-02-29)
PROC: 5A1D70Z Performance of Urinary Filtration, Intermittent, Less than 6 Hours Per Day (ICD-10-PCS; 2020-03-08)
DX: A41.9 Sepsis, unspecified organism (principal); R65.21 Severe sepsis with septic shock; N17.0 Acute kidney failure with tubular necrosis; I50.31 Acute diastolic (congestive) heart failure; J96.01 Acute respiratory failure with hypoxia; J18.9 Pneumonia, unspecified organism; I13.0 Hypertensive heart and chronic kidney disease with heart failure and stage 1 through stage 4 chronic kidney disease, or unspecified chronic kidney disease; J44.0 Chronic obstructive pulmonary disease with (acute) lower respiratory infection; K52.9 Noninfective gastroenteritis and colitis, unspecified; N18.9 Chronic kidney disease, unspecified; K21.9 Gastro-esophageal reflux disease without esophagitis; E78.5 Hyperlipidemia, unspecified; I48.91 Unspecified atrial fibrillation; D63.8 Anemia in other chronic diseases classified elsewhere; Z66 Do not resuscitate; L89.322 Pressure ulcer of left buttock, stage 2; F17.210 Nicotine dependence, cigarettes, uncomplicated
CPT/HCPCS: 0097U; 31500; 31720; 36415; 36430; 36569; 36600; 36620; 51702; 71045; 74018; 74176; 76705; 76937; 80048; 80053; 80069; 80074; 80202; 81001; 82140; 82272; 82330; 82565; 82728; 82803; 82947; 83540; 83550; 83605; 83615; 83690; 83735; 83880; 84100; 84484; 85014; 85018; 85025; 85027; 85610; 85651; 85730; 86140; 86317; 86850; 86900; 86901; 86923; 87040; 87070; 87086; 87205; 87324; 93005; 93010; 93306; 93308; 93321; 94002; 94003; 94640; 94660; 94760; 94762; 96361; 96365; 96375; 97110; 97112; 97162; 97166; 99285-25; A9270; A9270-GY; C1751; C1752; C9113; J0171; J0282; J0692; J0696; J0881; J1644; J1650; J1815; J1940; J2405; J2543; J2550; J2704; J2710; J2920; J3010; J3370; J7030; J7040; J7050; J7060; J7070; J7120; J7512; P9016; P9046

== ENCOUNTER → 2020-02-29 | Outpatient (CLI) | payer MEDICARE, OTHER ==
[~2020-02-29] MED LIST changes: +ACET325 PO; +AMIT10 PO; +BENEFIBER236 GM PO; +BISA10S PR; +CYCL10 PO; -Garlic1 EAC1 PO; +Hair, Skin & N1 EACH PO; +MILK OF MA400 MG/5 M PO; +ONDA4 PO; -THERA1 EACH PO; -VERA240ER PO; +Verapamil ER200 MG PO
[2020-02-29 10:40] LABS: Hematocrit 39.9 % (37.0-53.0); Hemoglobin 12.2 g/dL (13.5-17.5); Mean Corpuscular HGB Conc 30.6 g/dL (31.5-36.5); Mean Corpuscular Volume 95 fL (80-100); Mean Platelet Volume 8.9 fL (9.1-12.4); Platelet Count 392 K/mm3 (150-400); RDW Coefficient Variation 15.5 % (11.7-14.2); RDW Standard Deviation 54.2 fL (35.1-46.3); Red Blood Cell Count 4.21 M/mm3 (4.30-5.90); White Blood Cell Count 19.72 K/mm3 (4.00-11.30)
[2020-02-29 11:10] LABS: Bun/Creatinine Ratio 26.9 (12.0-20.0); Calcium, Blood 10.2 mg/dL (8.5-10.1); Creatinine, Blood 2.6 mg/dL (0.60-1.20); Potassium, Blood 5.2 mmol/L (3.5-5.5)
== END | disposition home or self-care (01) ==
LOC: LAB RH 09:26 → EDSTATUS 10:32
PROVIDERS: Family Medicine
DX: K27.9 Peptic ulcer, site unspecified, unspecified as acute or chronic, without hemorrhage or perforation (principal)
CPT/HCPCS: 80048; 85027